=== PATIENT | female | born 1980 | race Caucasian/White ===

== ENCOUNTER → 2019-09-26 09:21 | Outpatient (CLI) | payer OTHER, SELFPAY ==
[2019-04-11 13:19] VITALS: BMI 28.7
[2019-09-26 10:55] LABS: Anion Gap 3 (5-15); BUN 11 mg/dL (7-18); BUN/Creat Ratio 10.9 RATIO (10-20); Calcium,Total 8.8 mg/dL (8.5-10.1); Chloride 107 mmol/L (98-107); Cholesterol 157 mg/dL (200); Creatinine, Serum 1.01 mg/dL (0.55-1.02); EST Glomerular Filtration Rate 65 mL/min (>60); Est Glom Filt Rate - Afr Amer 78 mL/min (>60); Glucose 80 mg/dL (74-106); High Density Lipoprotein 56 mg/dL; Potassium 3.9 mmol/L (3.5-5.1); Sodium Level 139 mmol/L (136-145); Thyroid Stim Hormone (TSH) 1.74 uIU/mL (0.358-3.74); Triglycerides 91 mg/dL; Very Low Density Lipoprotein 18 mg/dL (5-40)
== END ==
PROVIDERS: PCP Family Medicine; Referring Provider Family Medicine; Visit Provider Family Medicine
DX: Z00.00 Encounter for general adult medical examination without abnormal findings (principal); Z13.220 Encounter for screening for lipoid disorders
CPT/HCPCS: 36415; 80048; 80061; 84443

== ENCOUNTER → 2020-01-30 08:06 | Outpatient (CLI) | payer OTHER, SELFPAY ==
[2019-04-11 13:19] VITALS: BMI 28.7
[2020-01-30 08:40] LABS: Hematocrit 43.8 % (37-47); Mean Corpuscular Hgb 30.6 pg (27.0-32.0); Mean Corpuscular Volume 95.8 fL (81-99); Mean Platelet Vol. 10.5 fl (6.2-12.0); Platelet Count 191 K/mm3 (150-450); RBC Distribution Width CV 11.8 % (11.6-14.6); RBC Distribution Width SD 40.9 fl (35.1-43.9); Red Blood Count 4.57 M/mm3 (4.2-5.4); White Blood Count 4.3 K/mm3 (4.4-11.0)
[2020-01-30 09:21] LABS: T3 Total - Triiodothyronine 0.99 ng/mL (0.6-1.81)
[2020-01-30 09:24] LABS: Follicle Stimulating Hormone 8.3 mIU/mL; Free T3 2.5 pg/mL (2.18-3.98); Prolactin 11.3 ng/mL; T4 Free Direct 0.81 ng/dL (0.76-1.46); Thyroid Stim Hormone (TSH) 2.24 uIU/mL (0.358-3.74)
[2020-01-31 08:08] LABS: DHEA Sulfate 56.9 ug/dL (57.3-279.2)
[2020-02-01 12:53] LABS: Sex Hormone-binding Globulin 72.7 nmol/L (24.6-122.0)
[2020-02-06 15:15] LABS: 17-Hydroxyprogesterone 59 ng/dL (.)
== END ==
PROVIDERS: PCP Family Medicine; Referring Provider Obstetrics & Gynecology; Visit Provider Obstetrics & Gynecology
DX: N92.6 Irregular menstruation, unspecified (principal); O92.6 Galactorrhea
CPT/HCPCS: 36415; 82533; 82627; 82670; 83001; 83498; 84146; 84270; 84403; 84439; 84443; 84480; 84481; 85027; 82626

== ENCOUNTER → 2020-02-20 11:00 | Outpatient (CLI) | payer OTHER, SELFPAY ==
[2019-04-11 13:19] VITALS: BMI 28.7
[2020-02-22 10:43] LABS: Hematocrit 40.2 % (37-47); Hemoglobin 13.2 g/dL (12.0-15.0); Mean Corp Hgb Conc 32.8 g/dL (32-36); Mean Corpuscular Hgb 31.2 pg (27.0-32.0); Mean Platelet Vol. 10.8 fl (6.2-12.0); Platelet Count 161 K/mm3 (150-450); RBC Distribution Width CV 11.9 % (11.6-14.6); RBC Distribution Width SD 40.7 fl (35.1-43.9); Red Blood Count 4.23 M/mm3 (4.2-5.4); White Blood Count 4.3 K/mm3 (4.4-11.0)
[2020-02-22 11:02] LABS: Prothrombin Time (Protime)PT. 13.1 SECONDS (11.7-14.9)
[2020-02-22 11:03] LABS: Partial Thromboplast Time 27.1 Seconds (24.1-36.2)
== END ==
PROVIDERS: Anesthesiology; PCP Family Medicine; Referring Provider Obstetrics & Gynecology; Visit Provider Obstetrics & Gynecology
DX: Z01.818 Encounter for other preprocedural examination (principal); Z11.59 Encounter for screening for other viral diseases
CPT/HCPCS: 36415; 85027; 85610; 85730; 86850; 86900; 86901; 87635; G2023; U0003

== ENCOUNTER 2020-04-03 08:10 | Day surgery (SDC) | payer OTHER, SELFPAY ==
[2019-04-11 13:19] VITALS: BMI 28.7
[2020-04-03] VITALS (9 sets, daily range): BP systolic 110–126; BP diastolic 70–84; PULSE 49–64; RESP 15–16; TEMP 36.6–36.9; O2SAT 100; BMI 22.9
--- NOTE | 2020-04-03 06:57 | HP.PCM_ITS ---
- Problem List (1) Chronic female pelvic pain Status: Chronic (2) Endometriosis Status: Acute (3) Abnormal uterine bleeding (AUB) Status: Acute History and Physical Date of Admission: 04/03/20 Date: 02/22/2020 Name: OWEN RAO Age: 39 Date of : 1980 HISTORY OF PRESENT ILLNESS: On 02/22/2020, Owen Rao, a 39 year old female 5 0 0 0 5, presented for: -- Pre-Op -- Owen is here for pre-op. She is not sure she wants tubes removed unless this is necessary and wishes to discuss further with Dr OLIAV. Consents are signed and packet provided. LMT as above. Owen presents for preop to address chronic left lower abdominal pain since tubal occlusion surgery, endometriosis as well as intermenstrual bleeding related to an endometrial polyp. She is scheduled for laparoscopic bilateral salpingectomy, surgical treatment of endometriosis as indicated, hysteroscopy, dilation and curettage with polypectomy. bobby ALLERGIES: NKDA MEDICATIONS HISTORY: Patient is also takin. halobetasol propionate 0.05 % topical cream, as needed REVIEW OF SYSTEMS: GENERAL - LLQ pain SKIN - Denies skin changes EYES - Denies visual changes EARS - Denies difficulty hearing NOSE - Denies nasal congestion or bleeding MOUTH - Denies sore throat or difficulty swallowing NECK - Denies pain or swelling RESPIRATORY - Denies shortness of breath or wheezing CARDIOVASCULAR - Denies palpitations or chest pain GASTROINTESTINAL - Denies nausea, vomiting, diarrhea, constipation, abdominal pain, melena, or bright red blood GENITOURINARY - Pain with IC MUSCULOSKELETAL - Denies joint or muscle pain NEUROLOGICAL - Denies localized numbness or weakness PSYCHIATRIC - Decreased libido ENDOCRINE - Denies heat or cold intolerance, weight loss or gain HEMATO-IMMUNOLOGIC - Denies excesive bleeding with cuts PAST HISTORY: Breast/Ovarian/Colon Cancers - Breast Cancer approximately age 30-40 and cousin Infections - Bronchitis and Chicken pox Illnesses - epilepsy as child Accidents - None History of Abnormal PAPS - Denies Hospitalizations - Childbirth and see surgery last baby Down's and 01/2015; SURGICAL HISTORY: 1. , 2004, 2005, 2007, 2009 2. lap for endometriosis 2004 3. [place] Teeth Removal 4. 02/05/2015 /BTO Dr Curtis Perera MENSTRUAL HISTORY: LMP Known?- DefiniteAmount/Duration - 4 days, Regularity - Regular, Frequency - monthly days, LMP - 01/28/20, Age Onset Menarche - 13 FAMILY HISTORY: MaternalGrandparent - Cancer; MaternalGrandparent - FH: Hypertension; MaternalGrandparent - Coronary Artery Disease; PaternalGrandparent - FH: Prostate cancer; PaternalGrandparent - Coronary Artery Disease; PaternalGrandparent - FH: Diabetes mellitus type 2; PaternalGrandparent - Unknown Disease; SOCIAL HISTORY: Alcohol Use - wine not while and once a week Smoking - Never Diet - moderate, balanced diet and caffeine > 2 drinks per day Lifestyle - high stress lifestyle Exercise - active Seat Belt Use - always Illicit Drug Use - denies use of street drugs Sexual Activity - Residence - Rent a home Spouse-Sig Other Name - Alejandro Spouse-Sig Other Occupation - Sales Spouse-Sig Other Phone No - [phone] Children Name(s) - Amari Fitzgerald Romagn, Noelle, Marshall Down's Control - BTO PHYSICAL EXAMINATION BP- 100/62 Sitting, Right arm, regular cuff Temp- 98.3 Taken Orally Weight- 168.00 lbs Height- 71.75 inch BMI:22.99 CONSTITUTIONAL - NAD, well nourished, and well developed SKIN - No rash, lesions, or ulcers HEENT - normocephalic, atraumatic, sclerae anicteric NECK - no nuchal rigidity LUNGS - normal respiratory rate and rhythm EXTREMITIES - No edema or calf tenderness NEUROLOGICAL - normal gait, normal balance, normal motor PSYCHIATRIC - A and O to time, place, person, mood and affect Laboratory Tests 03/27/20 Range/Units 11:02 COVID-19 (HAILY) Not Detected (Not Detected) ASSESSMENT: 1. Endometriosis, Unspecified 2. Polyp Of Corpus Uteri 3. Other Specified Irregular Menstruation 4. Left Lower Quadrant Pain 5. Pelvic And Perineal Pain PLAN BY DIAGNOSIS: 1. Endometriosis, Unspecified, Left Lower Quadrant Pain, Other Specified Irregular Menstruation, Pelvic And Perineal Pain and Polyp Of Corpus Uteri Pain not reproducible on prior exam Pelvic US with no clear pain etiology, however, known hx endometriosis and reported Filshie clip placement at time of tubal occlusion. Type II fibroid and polyp present - likely source of AUB I suspect painfulness is due to endometriosis and/or Filshie clip placement. I however cannot be certain of which of these pathology is c ontributing to her pain however and advise bilateral salpingectomy along with surgical treatment of endometriosis. Laparoscopic salpingectomy r/b/i reviewed Hysteroscopy, dilation and curettage with polypectomy, myomectomy as indicated also planned - r/b/i/a discussed. Consents reviewed and signed
[2020-04-03 08:34] LABS: Internal QC Validated? YES +Cl - CLEAR BKGD; Pregnancy, Urine Negative Negative
[2020-04-03] MEDS: Lactated Ringers 1,000 ML 100 ML IV (08:52)
[2020-04-03] MEDS: Bupivacaine Mpf 0.5% 30 ML VIAL (09:51)
--- NOTE | 2020-04-03 10:15 | FALS_PTH ---
PATIENT: RADHA RAO [place] [facility] [place][id number] AGE/SX: 39/F ROOM: RE04/03/[address]: Dr. Camryn Thomason MD : 1980 BED: DIS: 04/03/2020 SPEC #: [id number] RECD: 04/03/20 12:04 STATUS: KARSON REReginald #: [id number] NAHID: 04/03/20 10:[address]: Camryn Lawrence DEPT: SURGICAL PATHOLOGY RECD BY: Solange Benitez ENTERED: 04/03/20 12:36 SP TYPE: FALL TUBES OTHR DR: Dr. Yony Sharp MD Tissues: A - Fallopian tube B - Perineum, NOS C - Endometrial cavity Procedures: Surgery Specimen Level II Surgery Specimen Level IV HEADER OPERATION: Diagnostic laparoscopy, bilateral salpingectomy PRE-OP DIAGNOSIS: Endometriosis, polyp of corpus uteri, irregular menstruation, left lower quadrant pain, pelvic and perineal pain TISSUE SUBMITTED: A - Bilateral fallopian tubes, B - Posterior cul-de-sac endometriosis, C - Endometrial curettings MICROSCOPIC DIAGNOSIS A. Bilateral fallopian tubes, salpingectomy: Bilateral fallopian tubes, including fimbrial ends, no pathologic diagnosis. Bilateral paratubal cysts. B. Posterior cul-de-sac, biopsy: Pieces of mesothelial-lined fibroadipose and fibroconnective tissue, negative for endometriosis. Focal mild chronic inflammation. C. Endometrial curettings: Polypoid fragments of tissue with extensive fibrosis, most consistent with endocervical polyp. See comment. SJ:rg 04/04/20 COMMENT C. Endometrial tissue is not identified. Clinical correlation and appropriate follow up are necessary. MICROSCOPIC DESCRIPTION Slides are reviewed. GROSS DESCRIPTION A - Received in fixative is one container labeled with the patient's name and designated bilateral fallopian tubes. The specimen consists of bilateral fallopian tubes including fimbrial ends. The fallopian tubes are not identified as right or left. The first fallopian tube measures 5.5 cm in length and up to 1 cm in diameter. One of the fallopian tubes shows two Filshie clips that appear intact. A paratubal cyst is also noted measuring 1 cm in greatest dimension. The paratubal cyst is filled with clear fluid. Sections reveal unremarkable cut surfaces. The second fallopian tube measures 6 cm in length and 0.8 cm in diameter and shows one Filshie clip which appears intact. Sections reveal unremarkable cut surfaces. A paratubal cyst is also noted measuring 0.6 cm in greatest dimension. Fisher Troll Line sections are submitted in two cassettes as follows: 1 - one fallopian tube with two Filshie clips and paratubal cyst, 2 - second fallopian tube with one Filshie clip and paratubal cyst. B - Received in fixative is one container labeled with the patient's name and designated Posterior culdesac endometriosis. The specimen consists of two irregular pieces of allen-pink soft tissue that in aggregate measure 2 x 2 x 0.2 cm. The specimen is totally submitted in one cassette. C - Received in fixative is one container labeled with the patient's name and designated endometrial curettings. The specimen consists of multiple irregular fragments of allen soft tissue that in aggregate measure 2.5 x 1 x 0.1 cm. The specimen is totally submitted in one cassette. / SJ:rg 04/03/20 TC:5 CPT: 24653 x2, 96950 x2
--- NOTE | 2020-04-03 11:24 | PCM.OPRPT ---
Problem List (1) Chronic female pelvic pain Status: Chronic (2) Endometriosis Status: Acute (3) Abnormal uterine bleeding (AUB) Status: Acute Report of Operation Date of Procedure: 04/03/20 Pre-Operative Diagnosis: 1. chronic pelvic pain/left lower quadrant pain. 2. endometriosis. 3. intermenstrual bleeding. 4. uterine polyp. 5. submucus fibroid Post-Operative Diagnosis: 1. chronic pelvic pain/left lower quadrant pain. 2. endometriosis Surgery/Procedure Performed:: 1. Diagnostic laparoscopy. 2. Bilateral salpingectomy. 3. Excision of endometriosis. 4. Hysteroscopy. 5. Dilation and curettage Description of Surgical Findings:: uterine cavity appeared scarred Posterior culdesac Kian's window Normal appearing uterus, bilateral tubes with Filshie clips, normal ovaries with simple left follicular cyst Mild to moderate anterior cul-de-sac adhesions likely from prior section. Appendix normal mail handler sorter: Rios Shaver Type of Anesthesia:: General, Local Anesthesiologist: Bradford Chakraborty Specimen's removed: 1. posterior culdesac endometriosis. 2. endometrial curettings. 3. bilateral tubes with Filshie clips Drains: Urine 500 mL Estimated Blood Loss (mL): 10 Fluids Replaced: 1200 ml Description of Procedure: Indications: 39-year-old para 5 with a 3 of chronic left lower abdominal pain and intermenstrual bleeding. There is no evidence of GI etiology for pain. She had a known history of endometriosis status post resection as well as Filshie clip placement for tubal sterilization. Ultrasound suggested submucosal fibroid as well as endometrial polyp. Following counseling she opted to proceed with diagnostic laparoscopy, surgical treatment of endometriosis as indicated and bilateral salpingectomy with removal of Filshie clips, hysteroscopy D&C with polypectomy and myomectomy as indicated. Informed consent was obtained prior to the procedure. Procedure: The patient was brought to the operating room and signed was performed. She is placed in the dorsal supine position and induced under general anesthesia and intubated. Her arms were tucked at her sides and her arms and she was repositioned to dorsolithotomy. The abdomen and perineum were prepped and draped in sterile fashion. Patient was placed in the high lithotomy. Navarro catheter was placed for urinary drainage. A speculum was placed vaginally the cervix grasped at the anterior cervical lip using a single-tooth tenaculum. Uterus sounded to 5 cm. A ZUMI uterine manipulator was placed and secured for further minute uterine manipulation. The tenaculum was removed from the cervix as was the speculum removed from the vagina. The patient was placed into low lithotomy and attention turned to the abdomen. Her graph an inferior umbilical incision was made using the scalpel and Veress needle introduced with successful hanging drop test and no aspirate. The abdomen was insufflated to 15 mmHg. The Veress needle was removed and a 5 mm port placed under laparoscopic guidance confirming entry into the abdominal cavity. A left and the right tap blocks were performed under laparoscopic guidance using half percent bupivacaine. Incisions were placed at the sites under transillumination and 5 mm ports were also placed at each site respectively. The patient was placed into Trendelenburg. The abdomen and pelvis were inspected. Notably there was a Kian window in the posterior cul-de-sac and bilateral Filshie clips as anticipated. Attention was turned to the left adnexa the left fimbria was identified. The left mesosalpinx was serially clamped coagulated and cut using the Enseal device to the level of the uterine cornua with salpingectomy performed including removal of the attached Filshie clip. In similar fashion the right tubal fimbria was identified and right salpingectomy was also performed with retrieval of the Filshie clip. The tubes were placed into the anterior cul-de-sac as they were unable to be removed through the 5 mm trochars due to placement of the Filshie clips. Attention was turned to the posterior cul-de-sac the Kian window was dissected with resection of the peritoneum using blunt and sharp dissection. No endometriotic nodules were appreciated. This area was irrigated and suctioned with good hemostasis noted. Interceed was placed at this site. The infraumbilical port was removed and the fascial incision extended using a Mayra clamp and a 10 mm Endo Catch bag was introduced via this incision. The bilateral tubes were placed into the Endo Catch bag and removed from the abdomen. This portion of the procedure was complete. The abdomen was desufflated and the trochars removed. The infraumbilical fascia was reapproximated using 0 Vicryl on a UR 6 needle. The skin was reapproximated using 4-0 Monocryl by the TUBE MACHINE OPERATOR HELPER under my supervision. Steri-Strips and OpSite dressings were placed over each of these incisions abdominally. Attention was then turned to the perineum. The patient was placed into high lithotomy and the uterine manipulator was removed. A bivalve speculum was placed in the cervix again grasped using a single-tooth tooth tenaculum. The cervix was subsequently dilated and hysteroscopy performed using the Symphony on system demonstrating what appeared to be a scarred uterine cavity with thin endometrium. The tubal ostia were not seen possibly obscured. There was no evidence of polyp or fibroid. Hysteroscopic endometrial sampling was performed with the Symphony on resector. And this portion of the procedure was completed. The Symphony on system was removed from the uterus. The tenaculum removed from the cervix. The tenaculum site was hemostatic following compression. The speculum was removed from the vagina and the Navarro catheter deflated and removed. The patient was repositioned to dorsal supine position, awakened, extubated and transferred to the recovery room without complication. Sponge and needle counts were correct x2. The patient tolerated the procedure well. Fluid deficit 350 ml - Complications None - Admit VTE Documentation VTE Present on Admission: No VTE Mechan Device Prophylaxis: SCD's
--- NOTE | 2020-04-03 11:38 | DCINST_ITS ---
- Discharge Diagnoses Current Active Problems: Endometriosis, Chronic pelvic pain Reason(s) for Visit for Discharge Instructions: Diagnostic laparoscopy. Hysteroscopy. Dilation and curettage You will use the following diet at home:: No restrictions Your food should be the consistency of: Regular Discharge Activity: Return to Normal Activity, May not drive while taking narcotic pain medications., May Not Shower, - - No tub bath for 1-2 weeks May resume sexual activity in: - - 2-4 weeks Lifting Restrictions: 10-20lb Call your doctor if your incision/area has: Continuous Slow Oozing, Sudden Increased Bleeding, Increased Pain/ Swelling, Increased Redness Call your doctor if you observe: Fever of 101 or Higher, Inability to urinate, Inability to have a bowel movement, Using more than one pad per hour, Shortness of breath, Chest pain, Calf discomfort, Uncontrolled pain Suture Line Care: Avoid Pulling/Pushing Remove Dressing in (days):: 1 - remove steri-strip tapes in 4 days Cleanse incision/area with: Soap & Water Allergies/Adverse Reactions: Allergies acetaminophen [From Percocet] Adverse Reaction (Verified 04/03/20 08:29) Other oxycodone HCl [From Percocet] Adverse Reaction (Verified 04/03/20 08:29) Other Medications to take at Discharge Multivitamin with Minerals [Multiple Vitamin] 1 ea PO DAILY 02/20/20 Prasterone (Dhea) [Dhea] 25 mg PO DAILY 02/20/20 Docusate Sodium [Colace] 100 mg PO BID PRN PRN #60 cap 04/03/20 Hydrocodone/Acetaminophen [Hydrocodon-Acetaminophen 5-325] 1 tab PO Q6H PRN 7 Days #20 tablet 04/03/20 Ibuprofen 600 mg PO TID PRN 7 Days #30 tab 04/03/20 The following prescriptions were given: Docusate Sodium [Colace] 100 mg PO BID PRN PRN #60 cap PRN Reason: Constipation Transmission Status: Pending to [id number] Hydrocodone/Acetaminophen [Hydrocodon-Acetaminophen 5-325] 1 tab PO Q6H PRN 7 Days #20 tablet PRN Reason: severe pain Transmission Status: Received by [id number] Ibuprofen 600 mg PO TID PRN 7 Days #30 tab PRN Reason: Pain Or Fever Transmission Status: Pending to [id number] Primary Care Physician: Kentrell Sharp MD [Primary Care Provider] - Test Results: Test results from this visit will be discussed in further detail at your follow- up appointment, if applicable. Please Follow Up With: Kiersten When: 2-4 weeks
== END 2020-04-03 14:22 | disposition home or self-care (01) ==
LOC: SDC 08:11 → AC 08:12
PROVIDERS: Anesthesiology; PCP Family Medicine; Referring Provider Obstetrics & Gynecology; Visit Provider Obstetrics & Gynecology
PROC: (CPT 49320; 2020-04-03 10:00)
DX: D25.0 Submucous leiomyoma of uterus (principal); N84.0 Polyp of corpus uteri; N80.3 Endometriosis of pelvic peritoneum; N92.3 Ovulation bleeding; Z11.59 Encounter for screening for other viral diseases
CPT/HCPCS: 00952; 58558; 58661; 58662; 36415; 81025; 86850; 86900; 86901; 87635; 88302; 88305; 94799; J7120; C1760; J2405; U0003

== ENCOUNTER → 2020-12-08 09:48 | Outpatient (CLI) | payer OTHER, SELFPAY ==
[2020-04-03 08:37] VITALS: BMI 22.9
--- NOTE | 2020-12-08 09:52 | VDLE_ITS ---
Reason For Study: Pain and swelling RIGHT CFV is compressible, spontaneous, phasic, competent and demonstrates normal augmentation. FV is compressible, spontaneous, phasic, competent and demonstrates normal augmentation. POP V is compressible, spontaneous, phasic, competent and demonstrates normal augmentation. T/P Trunk is compressible. PTV is compressible. RT PerV is compressible. SFJ is INCOMPETENT and measures 1.20 x 1.60 cm. GSV proximal thigh measures 0.63 x 0.77 cm. GSV at knee measures 0.19 x 0.16 cm. GSV INCOMPETENT throughout for greater than 0.5 seconds. ASV at knee is INCOMPETENT for greater than 0.5 seconds and measures 0.71 x 0.77 cm. SSV proximal calf is INCOMPETENT for greater than 0.5 seconds and measures 0.22 x 0.24 cm. Vein of Giacomini is INCOMPETENT for greater than 0.5 seconds and measures 0.50 x 0.49 cm. Procedure This is a venous duplex using B-mode, color flow and spectral Doppler. Exam performed in department. Patient was scanned in reverse Trendelenburg position during reflux assessment. VL/Venous Duplex US, Unilateral Interpretation Summary Right leg no DVT or SVT noted. Right GSV 7.7 mm with reflux noted throughout. A SV 7.7 mm with reflux noted at the knee. LSV and into the vein of G measuring up to 5 mm with reflux noted as well. Ordering Physician: Casey Cruz Referring Physician: Yony Sharp MD Performed By: Radha Cooney RVT
== END ==
PROVIDERS: PCP Family Medicine; Referring Provider Surgery Vascular Surgery; Visit Provider Surgery Vascular Surgery
DX: M79.89 Other specified soft tissue disorders (principal); M79.606 Pain in leg, unspecified
CPT/HCPCS: 93971

== ENCOUNTER 2021-10-02 09:55 | Outpatient (CLI) | payer OTHER, SELFPAY ==
[2021-10-08 08:55] LABS: HPV APTIMA, High Risk Negative (Negative)
== END 2021-10-02 23:59 | disposition home or self-care (01) ==
LOC: LABSPEC 09:56
PROVIDERS: PCP Family Medicine; Visit Provider Obstetrics & Gynecology
DX: Z12.4 Encounter for screening for malignant neoplasm of cervix (principal)
CPT/HCPCS: 87624; 88175; G0145

== ENCOUNTER 2021-11-27 10:37 | Outpatient (CLI) | payer OTHER, SELFPAY ==
--- NOTE | 2021-11-27 10:39 | BI_ITS ---
MAMMOGRAPHY - BILATERAL SCREENING REASON FOR EXAM: Female, 41 years old. Routine annual screening examination. PERTINENT HISTORY: Non-contributory. TECHNIQUE: Digital bilateral breast bobby (3D mammographic acquisition) in the CC and MLO projections. 2-D mediolateral oblique (MLO) and craniocaudad (CC) views of both breasts were obtained. CAD: Full Field Digital Mammography with Computer Added Detection was performed. COMPARISON: None. Baseline examination. FINDINGS: Breast Composition: The breasts are extremely dense, which lowers the sensitivity of mammography. There are no dominant masses or suspicious calcifications. No other significant abnormalities are identified. BI/SCRN MAMM (CAD)W/BOBBY BILAT IMPRESSION: Negative screening mammogram. Yearly followup mammogram recommended. (A) ASSESSMENT CATEGORY: BIRADS Category 1: Negative. A letter regarding these results will be sent to the patient by the facility within 30 days. Approximately 10% of breast cancers are not detected by mammography. A normal mammogram should not delay biopsy of a clinically suspicious abnormality. [id number] Electronically Signed: Vince Mena MD at 12:11 EDT ,
== END 2021-11-27 23:59 | disposition home or self-care (01) ==
LOC: OPBI 10:37
PROVIDERS: PCP Family Medicine; Referring Provider Obstetrics & Gynecology; Visit Provider Obstetrics & Gynecology
DX: Z12.31 Encounter for screening mammogram for malignant neoplasm of breast (principal)
CPT/HCPCS: 77063; 77067

== ENCOUNTER 2022-07-15 14:21 | Outpatient (CLI) | payer OTHER, SELFPAY ==
[2022-07-15 16:22] LABS: Vitamin D,25 Hydroxy 42.4 ng/mL
[2022-07-15 16:24] LABS: Anion Gap 7 (5-15); BUN 13 mg/dL (7-18); BUN/Creat Ratio 15.5 RATIO (10-20); Calcium,Total 8.5 mg/dL (8.5-10.1); Chloride 103 mmol/L (98-107); Cholesterol 162 mg/dL (200); Creatinine, Serum 0.84 mg/dL (0.55-1.02); EST Glomerular Filtration Rate 79 mL/min (>60); Est Glom Filt Rate - Afr Amer 96 mL/min (>60); Glucose 88 mg/dL (74-106); High Density Lipoprotein 54 mg/dL; Potassium 4.4 mmol/L (3.5-5.1); Sodium Level 139 mmol/L (136-145); Triglycerides 153 mg/dL; Very Low Density Lipoprotein 31 mg/dL (5-40)
== END 2022-07-15 23:59 | disposition home or self-care (01) ==
LOC: MFPLAB 14:25
PROVIDERS: PCP Family Medicine; Referring Provider Family Medicine; Visit Provider Family Medicine
DX: Z00.00 Encounter for general adult medical examination without abnormal findings (principal)
CPT/HCPCS: 36415; 80048; 80061; 82306; 84443

== ENCOUNTER → 2023-01-28 | Outpatient (CLI) | payer OTHER, SELFPAY ==
--- NOTE | 2023-01-28 12:17 | BI_ITS ---
MAMMOGRAPHY - BILATERAL SCREENING REASON FOR EXAM: Female, 42 years old. Routine annual screening examination. PERTINENT HISTORY: Non-contributory. TECHNIQUE: Digital bilateral breast bobby (3D mammographic acquisition) in the CC and MLO projections. 2-D mediolateral oblique (MLO) and craniocaudad (CC) views of both breasts were obtained. CAD: Full Field Digital Mammography with Computer Added Detection was performed. COMPARISON: Comparison is made with prior study dated November 27, 2021. FINDINGS: Breast Composition: The breasts are extremely dense, which lowers the sensitivity of mammography. There are no dominant masses or suspicious calcifications. No other significant abnormalities are identified. There has been no significant change since the prior study. BI/SCRN MAMM (CAD)W/BOBBY BILAT IMPRESSION: Stable bilateral screening mammogram. Yearly follow-up mammogram recommended. (A) ASSESSMENT CATEGORY: BIRADS Category 1: Negative. A letter regarding these results will be sent to the patient by the facility within 30 days. Approximately 10% of breast cancers are not detected by mammography. A normal mammogram should not delay biopsy of a clinically suspicious abnormality. [id number] Electronically Signed: Vince Mena MD at 13:42 EDT ,
== END | disposition home or self-care (01) ==
LOC: OPBI 12:15
PROVIDERS: PCP Family Medicine; Referring Provider Obstetrics & Gynecology; Visit Provider Obstetrics & Gynecology
DX: Z12.31 Encounter for screening mammogram for malignant neoplasm of breast (principal)
CPT/HCPCS: 77063; 77067

== ENCOUNTER → 2024-02-07 | Outpatient (CLI) | payer OTHER, SELFPAY ==
--- NOTE | 2024-02-07 09:14 | BI_ITS ---
MAMMOGRAPHY - BILATERAL SCREENING REASON FOR EXAM: Female, 43 years old. Routine annual screening examination. PERTINENT HISTORY: Non-contributory. TECHNIQUE: Digital bilateral breast bobby (3D mammographic acquisition) in the CC and MLO projections. 2-D mediolateral oblique (MLO) and craniocaudad (CC) views of both breasts were obtained. CAD: Full Field Digital Mammography with Computer Added Detection was performed. COMPARISON: Comparison is made with prior study dated February 27, 2023 and November 27, 2021. FINDINGS: Breast Composition: The breasts are extremely dense, which lowers the sensitivity of mammography. There are no dominant masses or suspicious calcifications. No other significant abnormalities are identified. There has been no significant change since the prior study. BI/SCRN MAMM (CAD)W/BOBBY BILAT IMPRESSION: Stable bilateral screening mammogram. Yearly follow-up mammogram recommended. (A) ASSESSMENT CATEGORY: BIRADS Category 1: Negative. A letter regarding these results will be sent to the patient by the facility within 30 days. Approximately 10% of breast cancers are not detected by mammography. A normal mammogram should not delay biopsy of a clinically suspicious abnormality. [id number] Electronically Signed: Vince Mena MD at 9:48 EDT ,
== END | disposition home or self-care (01) ==
LOC: OPBI 09:13
PROVIDERS: PCP Family Medicine; Referring Provider Obstetrics & Gynecology; Visit Provider Obstetrics & Gynecology
DX: Z12.31 Encounter for screening mammogram for malignant neoplasm of breast (principal)
CPT/HCPCS: 77063; 77067

== ENCOUNTER → 2024-07-03 | Outpatient (CLI) | payer OTHER, SELFPAY ==
--- NOTE | 2024-07-03 11:45 | RAD_ITS ---
STUDY: X-RAY - CERVICAL SPINE REASON FOR EXAM: Female, 44 years old. back pain TECHNIQUE: 5 view(s) of the cervical spine were obtained. COMPARISON: None FINDINGS: Normal anterior atlantoaxial articulation. Normal odontoid process. There is straightening of the normal cervical lordosis. There is multi-level endplate spondylosis. There is multi-level degenerative disc disease with multilevel disc space narrowing. Normal visualized intervertebral neuroforamina. The soft tissue structures are unremarkable. RAD/Cerv Spine 4 or 5 Views IMPRESSION: Degenerative disc disease lower cervical spine with straightening of the normal curvature. MRI may be useful. Electronically Signed: Bryce Landry MD at 12:49 EST ,
--- NOTE | 2024-07-03 11:45 | RAD_ITS ---
STUDY: X-RAY - THORACIC SPINE REASON FOR EXAM: Female, 44 years old. back pain TECHNIQUE: 3 view(s) of the thoracic spine were obtained. COMPARISON: None. FINDINGS: Normal kyphosis of the thoracic spine. There is no substantial scoliosis. There is multilevel endplate spondylosis of the thoracic vertebrae. There is multilevel disc space narrowing of the thoracic spine. The soft tissue structures are unremarkable. RAD/Thoracic Spine 2 Views IMPRESSION: Mild degenerative disc disease lower thoracic spine. MRI may be useful. Electronically Signed: Bryce Landry MD at 12:50 EST ,
== END | disposition home or self-care (01) ==
LOC: MTRAD 11:45
PROVIDERS: PCP Family Medicine; Referring Provider Family Medicine; Visit Provider Family Medicine
DX: R20.0 Anesthesia of skin (principal)
CPT/HCPCS: 72050; 72070

== ENCOUNTER → 2025-06-17 | Outpatient (CLI) | payer OTHER, SELFPAY ==
--- NOTE | 2025-06-17 12:30 | BI_ITS ---
EXAM: SCRN MAMM (CAD)W/BOBBY BILAT DATE: 06/17/2025 CLINICAL HISTORY: F, Age 45 y/o , SCREEN FOR BREAST CANCER TECHNIQUE: Procedure Code: [id number] Modality: MG Procedure: SCRN MAMM (CAD)W/BOBBY BILAT COMPARISON: Prior exam(s) were compared FINDINGS: TISSUE DENSITY: The breasts are heterogeneously dense, which may obscure small masses. Bilateral Breast Mammographic Findings: No significant masses, calcifications or other abnormalities are identified. BI/SCRN MAMM (CAD)W/BOBBY BILAT IMPRESSION: No mammographic evidence of malignancy. OVERALL FINAL ASSESSMENT BI-RADS 1: NEGATIVE. RECOMMENDATION: Routine annual follow-up in 1 Year Additional Recommendation none A letter with findings and recommendations will be mailed to the patient. Reading Location: [id number]
== END | disposition home or self-care (01) ==
LOC: OPBI 12:24
PROVIDERS: PCP Family Medicine; Referring Provider Nurse Practitioner Family; Visit Provider Nurse Practitioner Family
DX: Z12.31 Encounter for screening mammogram for malignant neoplasm of breast (principal)
CPT/HCPCS: 77063; 77067

== ENCOUNTER 2025-06-30 12:39 | Emergency (ER) | payer OTHER, SELFPAY ==
[2025-06-30 12:40] VITALS: BP 126/79; PULSE 67; RESP 16; TEMP 36.9; O2SAT 99; BMI 22.7
[2025-06-30 12:55] VITALS: BP 126/76; PULSE 89; RESP 18; TEMP 37.1; O2SAT 98
--- OUTSIDE RECORDS SUMMARY | 2025-06-30 13:32 | XMS RPT_ITS | CCD ---
Author Organization [facility] Inform ion Partnership [facility] Care Team Providers Care Sheriff Deputy Name Role Phone Lila MARY, Dr. Bhakta Primary Care Physicia n Dr. Yony Sharp MD Referring Provider [phone] Cora Ryan Attending Physician [phone] Kala Langford Attending Unavailable Yony Sharp Referring Unavailable Yony Sharp Primary Care Unavailable Dwight Croft Attending Unavailable Dwight Croft Referring Unavailable Yony Sharp Primary Care Unavailable Cora Maddox Attending Unavailable Cora Maddox Referring Unavailable Yony Sharp Primary Care Unavailable Ethan Yadav Attending Unavailable Yony Sharp Primary Care Unavailable Cora Maddox Attending Unavailable Yony Sharp Referring Unavailable Yony Sharp Primary Care Unavailable Allergies Allergy Classification Reported Allergen(s) Allergy Type Date of Onset Reaction(s) Facility (3 sources) Acetaminophen Drug Allergy 04-03-2020 Other [facility] (4 sources) oxyCODONE; Translations: [oxycodone HCl] Drug Allergy 04-03-2020 Other [facility] (1 source) Acetaminophen Drug Allergy 05-02-2025 [facility] Repository Medications Current Medications Medication Drug Class(es) Dates Sig (Normalized) Sig (Original) Multivitamin With Minerals (2 sources) Start: 02-20-2020 Multivitamin With Minerals Active 1 EACH PO DAILY February 20, 2020 12:00am Start: 02-20-2020 Multivitamin W ith Minerals Active 1 EACH PO DAILY February 19, 2020 11:00pm Multivitamin With Minerals 1 EACH tablet (1 source) Start: 02-20-2020 take 1 tablet by mouth once daily Multivitamin With Minerals 1 EACH tablet Active 1 NMA PO DAILY February 20, 2020 12:00am Complies with drug therapy Completed/Discontinued Medications Medication Drug Class(es) Dates Sig (Normalized) Sig (Original) acetaminophen 325 mg / HYDROcodone bitartrate 5 mg oral tablet (3 sources) Opioid Agonist Start: 04-03-2020 End: 04-10-2020 Hydrocodone-Acetamin ophen 1 EACH tablet Discontinued 1 {tbl} PO EVERY 6 HOURS as needed for severe pain 20 7 0 April 03, 2020 April 09, 2020 12:00am April 10, 2020 12:02am Endometriosis Endometriosis, unspecified Start: 04-03-2020 End: 04-10-2020 take 1 tablet by mouth every six hours Hydrocodone-Acetaminophen Discontinued 1 TABLET PO EVERY 6 HOURS 20 7 April 03, 2020 April 10, 2020 12:02am docusate sodium 100 mg oral capsule (3 sources) Start: 04-03-2020 End: 07-19-2024 take 1 capsule by mouth twice daily as needed for constipation Docusate Sodium 100 MG capsule Discontinued 100 mg PO TWICE DAILY NEEDED as needed for Constipation 60 0 April 03, 2020 12:00am July 19, 2024 12:10pm ibuprofen 600 mg oral tablet (3 sources) Nonsteroidal Anti-inflammatory Drug Start: 04-03-2020 End: 04-10-2020 take 1 tablet by mouth three times daily as needed for pain Ibuprofen 600 MG tablet Discontinued 600 mg PO THREE TIMES A DAY as needed for Pain Or Fever 30 7 0 April 03, 2020 11:40am April 09, 2020 12:00am April 10, 2020 12:02am prasterone 25 mg oral capsule (3 sources) Start: 02-20-2020 End: 07-19-2024 take 1 capsule by mouth once daily Prasterone (Dhea) 25 MG capsule Discontinued 25 mg PO DAILY February 20, 2020 12:00am July 19, 2024 12:10pm Problems Active Problems Problem Classification Problem Date Documented Date Episodic/Chronic Abdominal pain (3 sources) Chronic pelvic pain of female; Translations: [Pelvic and perineal pain] 04-03-2020 Episodic Endometriosis (3 sources) Endometriosis (clinical); Translations: [Endometriosis, unspecified] 04-03-2020 Chronic Menopausal disorders (3 sources) Menopausal syndrome; Translations: [Menopausal and female climacteric states] Onset: 05-02-2025 05-02-2025 Chronic Menstrual disorders (3 sources) Irregular periods; Translations: [Irregular menstruation, unspecified] Onset: 05-02-2025 05-02-2025 Chronic Other circulatory disease (1 source) Raynaud's disease; Translations: [Raynaud's syndrome without gangrene] 07-19-2024 Chronic Other female genital disorders (3 sources) Abnormal uterine bleeding; Translations: [Abnormal uterine and vaginal bleeding, unspecified] 04-03-2020 Chronic Other screening for suspected conditions (not mental disorders or infectious disease) (2 sources) Encounter for screening mammogram for malignant neoplasm of breast; Translations: [Encounter for screening mammogram for malignant neoplasm of breast] Onset: 05-02-2025 Episodic Past or Other Problems Problem Classification Problem Date Documented Da te Episodic/Chronic Other nervous system disorders (1 source) Anesthesia of skin; Translations: [Anesthesia of skin] Onset: 08-02-2024 Episodic Spondylosis; intervertebral disc disorders; other back problems (3 sources) Cervical radiculopathy; Translations: [Radiculopathy, cervical region] Onset: 07-19-2024 07-19-2024 Episodic Results Test Name Value Interpretation Reference Range Facil ity SCRN MAMM (CAD)W/BOBBY BILATo n 06-17-2025 SCRN MAMM (CAD)W/BOBBY BILAT [facility] Imaging Services [address] [place] [id number] SCRN MAMM (CAD)W/BOBBY BILAT MR#: [id number] Acct: [id number] Name: RADHA RAO Rep #: [id number] : 1980 F 45 From: Tameka Padilla i, MD PCP: Dr. Yony Sharp MD Status: REG CLI Study: SCRN MAMM (CAD)W/BOBBY BILAT Date of Exam: 11/06 Exam# [id number] Ordering Dr: Cora Maddox LABOR EMPLOYMENT ASSOCIATE-C EXAM: SCRN MAMM (CAD)W/BOBBY BILAT DATE: 06/17/2025 CLINICAL HISTORY: F, Age 45 y/o , SCREEN FOR BREAST CANCER TECHNIQUE: Procedure Code: [id number] Modality: MG Procedure: SCRN MAMM (CAD)W/BOBBY BILAT COMPARISON: Prior exam(s) were compared FINDINGS: TISSUE DENSITY: The breasts are heterogeneously dense, which may obscure small masses. Bilateral Breast Mammographic Findings: No significant masses, calcifications or other abnormalities are identified. BI/SCRN MAMM (CAD)W/BOBBY BILAT IMPRESSION: No mammographic evidence of malignancy. OVERALL FINAL ASSESSMENT BI-RADS 1: NEGATIVE. RECOMMENDATION: Routine annual follow-up in 1 Year Additional Recommendation none A letter with findings and recommendations will be mailed to the patient. Reading Location: [id number] CC: AJAY Maddox; Dr. Yony Sharp MD Maori Physiotherapist: Signed Normal [facility] Testing Lead Office Visit Reporton 05-02-2025 Testing Lead Office Visit Report [facility]'s [address], [address] [place] [address] OFFICE VISIT Date of Service: 05/02/25 MR#: [id number] Acct: [id number] Name: RADHA RAO Rep #: [id number] : 1980 Provider: AJAY Umana Age/Sex: 44/F Location: [facility] Status: Signed Intake Vital Signs 07/19/24 11:06 05/02/25 10:55 05/02/25 11:07 Height 5 ft 11.5 in 5 ft 11.5 in 5 ft 11.5 in Weight: 168 lb 2 oz 166 lb 1 oz BMI 23.1 22.8 BP 122/77 H 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 Is patient in pain?: No Allergies acetaminophen (From Percocet) Adverse Reaction (Verified 05/02/25 10:56) Other oxycodone HCl (From Percocet) Adverse Reaction (Verified 05/02/25 10:56) Other Medications ???Medication ???Instructions ???Recorded ???Confirmed ???Type multivitamin with minerals 1 ea PO DAILY 02/20/20 05/02/25 Hi story Is last menstrual period known: Yes Last Menstrual Period: 04/23/25 Post menopausal: No Patient : No : No Control Method: bilateral salp PFSH Surgical History H/O bilateral salpingectomy History of surgery on lower extremity History of laparoscopy Hx of section Family History Father Cancer Prostate Diabetes Grandfather Cancer Prostate Grandmother Uterine cancer Aunt Uterine cancer Social History adopted: No household members: spouse and children number of children: 5 current occupational status: employed current occupation: [employer] sexually active: Yes Smoking Status: Never smoker alcohol intake: current alcohol intake frequency: holidays/special occasions only substance use type: does not use caffeine: Yes Type: coffee during the past year weight has: remained stable what type of physical activity do you participate in: running frequency: 3-4 times per week lane/scientology: Jewish seatbelt use: always do you feel safe at home: Yes additional social history: Alejandro- Alonzo History 5 Elective abortions Hx Para 5 Spontaneous abortions Hx # Term Pregnancies Ectopic pregnancies Hx # Pregnancies Multiple births # of living children 5 Past Pregnancies Del. Date Name GA/Weeks Outcome Route Bth Weight Infant Gen Labor Lgth Anesthesia Del Locatn Provider FOB Unknown Lia- 2004 live - full term Female [facility] Unknown Alejandro- 2005 live - full term Male [facility] Unknown Rom- 2007 live - full term Male [facility] Unknown Amry- 2009 live - full term Female [facility] Unknown Osmel- 2014 live - full term Male [facility] Delivery Date: Last Updated by: Ginny Goodrich failed to progress Delivery Date: Last Updated by: Ginny Goodrich down syndrome HPI Encounter for routine gynecological examination Details: RADHA RAO is a 44 year old who presents for annual exam. She is here to establish; previous patient of Dr. Camryn Thomason. She reports she is experiencing night sweats and hot flashes; vaginal dryness. She has also had irregular menses. Last PAP: 2021; normal. HPV neg History of abnormal PAP: no Last mammogram: 2023; normal History of abnormal mammogram: no Colon cancer screening: age 45 Other preventative health care screenings: Dr. Sharp; PCP Female Reproductive History Last Menstrual Period: 04/23/25 Cycle Length: 21-35 Bleeding Duration: 5 Questions: metrorrhagia: No, sexually active: Yes, dyspareunia: No and PCB: No Menopausal Symptoms: Yes hot flashes, Yes night sweats, No weight change, No mood changes, No difficulty concentrating, Yes sleep problems and Yes change in libido Menopausal Treatment: No HRT, No Vaginal Estrogen, No Osphena, No OTC treatments and No prescription non-hormonal treatment ROS Const Constitutional: Reports night sweats; Denies chills, fatigue, fever(s), headache(s) or weight loss Eyes Eyes: Denies change in vision ENT ENT: Denies dizziness Resp Resp: Denies cough GI GI: Denies abdominal pain, constipation or nausea : Reports hot flashes; Denies difficulty voiding, dysuria, hematuria, nipple discharge, pelvic pain, prolapse symptoms, urinary incontinence, vaginal discharge, vaginal dryness, vaginal odor or vaginal pruritus Skin Skin/Breast: Denies alopecia, rash, breast mass, breast pain, breast skin changes or nipple discharge Neuro Neuro: Denies dizziness Psych Psych: Reports change in libido; Denies anxiety, depression or difficulty concentrating Endo Endo: Denies cold intolerance, excessive sweat (more content not included)... Normal [facility] Cerv Spine 2 or 3 Viewson Cerv Spine 2 or 3 Views [facility] [address] [place] [address] Cerv Spine 2 or 3 Views MR#: [id number] Acct: [id number] Name: RADHA RAO Rep #: [id number] : 1980 F 44 From: Bryce Castro PCP: Dr. Yony Sharp MD Status: DEP AMB Study: Cerv Spine 2 or 3 Views Date of Exam: 07/19/24 Exam# [id number] Ordering Dr: Kala Langford [id number] INDICATION: pain -- please do flex/ext EXAMINATION/TECHNIQUE : X-RAY - XR Spine Cervical 2 or 3 Views, lateral view and flexion and extension. COMPARISON: 09/02/2023 __ FINDINGS: VERTEBRAE: Preserved vertebral body height. No fracture. No spondylolisthesis. Preservation of the normal cervical lordosis. No significant facet arthropathy. No abnormal motion on flexion and extension views. Normal appearance the odontoid process and prevertebral soft tissue planes. DISCS: Subtle endplate deformity particularly at C5-6 and to lesser extent C6-7. NECK SOFT TISSUES: No prevertebral soft tissue widening. LUNG APICES: Clear. RAD/Cerv Spine 2 or 3 Views IMPRESSION: 1. No evidence of fracture, subluxation or abnormal motion. 2. Subtle endplate changes most notable at C5-6.. Electronically Signed: Bryce Leal MD at 1:18 EST , CC: GLENIS Thakkar; Dr. Yony Sharp MD Maori Physiotherapist: Signed Normal [facility] Orthopedic Visit Reporton Orthopedic Visit Report [facility] [address] [place] [address] OFFICE VISIT Date of Service: 07/19/24 MR#: [id number] Acct: [id number] Name: RADHA RAO Rep #: [id number] : 1980 Provider: GLENIS Thakkar Age/Sex: 44/F Location[place] [facility] Status: Signed Intake Vital Signs 04/03/20 08:37 07/19/24 11:06 Height 5 ft 11.5 in 5 ft 11.5 in Weight: 168 lb 2 oz BMI 23.1 Intake Visit Reasons: CERVICAL SPINE Accompanied by: Self Is patient in pain?: No Allergies acetaminophen (From Percocet) Adverse Reaction (Verified 07/19/24 11:10) Other oxycodone HCl (From Percocet) Adverse Reaction (Verified 07/19/24 11:10) Other [facility] Surgical History (Updated 07/19/24 @ 11:14 by Pamella Bahena MA) History of surgery on lower extremity History of laparoscopy Hx of section Family History (Updated 07/19/24 @ 11:15 by Pamella Bahena MA) Father Cancer Prostate Diabetes Grandfather Cancer Prostate Social History (Updated 07/19/24 @ 11:15 by Pamella Bahena MA) household members: spouse and children Smoking Status: Never smoker alcohol intake: current alcohol intake frequency: holidays/special occasions only HPI CERVICAL SPINE Details: This documentation accurately reflects the service provided and the decisions made by me, GLENIS Thakkar 07/19/24 1106. Part of today???s visit was documented by Pamella WRIGHT , acting as scribe. RADHA RAO is a 44 year old F here today for Cervical pain. Patient states that her left shoulder has bothered her since last winter. Patient states in May that she got a pinched nerve and kink in her neck and it would come and go away and then the last time it happen she got pain that radiate down her left arm. Patient has had numbness and tingling that went down her arm. This numbness and tingling went down her left shoulder blade to her left armpit then down her medial arm to her elbow. No numbness or tingling below the elbow. Patient has taken Ibuprofen and Tylenol and that hasn't helped her nerve pain. Patient state ice helped with the nerve pain. Patient states laying down helps it. Patient states sitting while working bothers her the most, walking relieves the pain. Patient has never had injections. Patient hasn't had PT. Denies any dexterity or balance issues. Ortho Exam General General: Yes no acute distress Neurologic: Yes alert and Yes oriented x3 Spine SPINE TESTING CERVICAL THORACIC LUMBAR Musculoskeletal Strength 0=absent - 5=normal Details: Neurological exam of the upper extremities shows 5x5 power. Normal sensations across all dermatomes. No hyperreflexia. No midline or paraspinal tenderness. Coding Level of Care Code Off vis,new,level 4 Diagnoses Cervical radiculopathy M54.12 Assessment and Plan Assessment and Plan (1) Cervical radiculopathy: Status: Acute Orders: Orders Cerv Spine 2 or 3 Views Today M54.2 - Cervicalgia Referrals Physical Therapy Referral M54.12 - Radiculopathy, cervical region Medications: Discontinued docusate sodium Discontinued Reason: Pt no longer taking 100 mg PO BID PRN PRN 60 caps 0RF Constipation Plan Obtained and reviewed flexion/extension xrays today with the patient and reviewed prior imaging. Cervical xrays shows a loss of normal cervical lordosis and hyperlaxity on flexion views. No MRI. Explained imaging findings in detail. Given her pain from May with the radicular symptoms of numbness and tingling extending down her left shoulder to her armpit and biceps, an MRI at this time is warranted to further assess. Also recommended physical therapy to increase extensor strength and stretching to improve the cervical straightening. Discussed at home treatment such as taking 600- 800mg of ibuprofen for anti-inflammatory effects and supplementing with Tylenol as needed. She has a TENS unit at home and recommend that she trial that. After she completes physical therapy and continues to have pain, we will order an MRI at that time. She will follow up after the MRI to review the results. Patient is in agreement. 07/19/24 1405 Date Kala Boggs Signature: Date (if applicable) CC: Dr. Yony Sharp MD Normal [facility] Cerv Spine 4 or 5 Viewson Cerv Spine 4 or 5 Views [facility] Imaging Services [address] [place] [address] Cerv Spine 4 or 5 Views MR#: [id number] Acct: [id number] Name: RADHA RAO Rep #: [id number] : 1980 F 44 From: Bryce Landry MD PCP: Dr. Yony Sharp MD Status: [facility] Study: Cerv Spine 4 or 5 Views Date of Exam: 07/03/24 Exam# [id number] Ordering Dr: Dwight Croft MD [id number] STUDY: X-RAY - CERVICAL SPINE REASON FOR EXAM: Female, 44 years old. back pain TECHNIQUE: 5 view(s) of the cervical spine were obtained. COMPARISON: None FINDINGS: Normal anterior atlantoaxial articulation. Normal odontoid process. There is straightening of the normal cervical lordosis. There is multi-level endplate spondylosis. There is multi-level degenerative disc disease with multilevel disc space narrowing. Normal visualized intervertebral neuroforamina. The soft tissue structures are unremarkable. RAD/Cerv Spine 4 or 5 Views IMPRESSION: Degenerative disc disease lower cervical spine with straightening of the normal curvature. MRI may be useful. Electronically Signed: Bryce Landry MD at 12:49 EST , CC: Dr. Dwight Croft MD; Dr. Yony Sharp MD Maori Physiotherapist: Signed Normal [facility] Thoracic Spine 2 Viewson Thoracic Spine 2 Views [facility] Imaging Services [address] [place], [place] [id number] Thoracic Spine 2 Views MR#: [id number] Acct: [id number] Name: RADHA RAO Rep #: [id number] : 1980 F 44 From: Bryce Landry MD PCP: Dr. Yony Sharp MD Status: REG CL Study: Thoracic Spine 2 Views Date of Exam: 07/03/24 Exam# [id number] Ordering Dr: Dwight Croft MD [id number] STUDY: X-RAY - THORACIC SPINE REASON FOR EXAM: Female, 44 years old. back pain TECHNIQUE: 3 view(s) of the thoracic spine were obtained. COMPARISON: None. FINDINGS: Normal kyphosis of the thoracic spine. There is no substantial scoliosis. There is multilevel endplate spondylosis of the thoracic vertebrae. There is multilevel disc space narrowing of the thoracic spine. The soft tissue structures are unremarkable. RAD/Thoracic Spine 2 Views IMPRESSION: Mild degenerative disc disease lower thoracic spine. MRI may be useful. Electronically Signed: Bryce Landry MD at 12:50 EST , CC: Dr. Dwight Croft MD; Dr. Yony Sharp MD Maori Physiotherapist: Signed Normal [facility] Basophil percentageon 2021 Chloride [Moles/Vol] 103 mmol/L 98-107 [facility] Work Phone: Cholesterol [Mass/Vol] 162 mg/dL <200 [facility] Work Phone: Comment on above: <200 mg/dL Desirable 200-240 mg/dL Borderline >240 mg/dL High Risk Glucose [Mass/Vol] 88 mg/dL 74-106 [facility] Work Phone: Potassium [Moles/Vol] 4.4 mmol/L 3.5-5.1 [facility] Work Phone: Sodium [Moles/Vol] 139 mmol/L 136-145 [facility] Work Phone: Triglyceride [Mass/Vol] 153 mg/dL <199 [facility] Work Phone: Comment on above: The drugs N-Acetylcy steine and Metamizole may falsely depress this assay.Serum Triglycerides Reference Interval Normal <150 mg/dL Borderline high 150 - 199 mg/dL High 200 - 499 mg/dL Very High > or = 500 mg/dL Laboratory - Chemistry and C hemistry - challengeon 07-15-2022 CO2 [Moles/Vol] 29.0 mmol/L 21.0-32.0 [facility] Work Phone: Urea nitrogen/Creatinine [Mass ratio] 15.5 mg/mg - [facility] Work Phone: No Panel Informationon 07-15 Estimated GFR (MDRD) Amer 96 mL/min >60 [facility] Work Phone: Comment on above: GFR Calc Estimated GFR (MDRD) Non-Af Amer 79 mL/min >60 [facility] Work Phone: Comment on above: Non- GFR Calc Thyroid Stimulating Hormone (TSH) 1.30 uIU/mL 0.358-3.74 [facility] Work Phone: Vitamin D 25-Hydroxy 42.4 ng/mL [facility] Work Phone: Comment on above: Vitamin D 25(OH) Sta tus Range Deficiency <20 ng/mL (50nmol/L) Insufficiency 20 - 30 ng/mL (50 - 75 nmol/L) Sufficiency 30 - 100 ng/mL (75 - 250 nmol/L) Toxicity >100 ng/mL (>250 nmol/L) Serum or plasma calcium davin urement (mass/volume)on 07-15-2022 Calcium [Mass/Vol] 8.5 mg/dL 8.5-10.1 [facility] Work Phone: Serum or plasma cholesterol in HDL measurement (mass/volume)on 07-15-2022 Cholesterol in HDL [Mass/Vol] 54 mg/dL >40 [facility] Work Phone: Comment on above: The drugs N-Acetylcy steine and Metamizole may falsely depress this assay. Reference Range HDL <40 mg/dL Low HDL Cholesterol HDL >or= 60 mg/dL High HDL Cholesterol Serum or plasma cholesterol in VLDL measurement (mass/volume)on 07-15-2022 Cholesterol in VLDL [Mass/Vol] 31 mg/dL 5-40 [facility] Work Phone: Serum or plasma creatinine m easurement (mass/volume)on 07-15-2022 Creatinine [Mass/Vol] 0.84 mg/dL 0.55-1.02 [facility] Work Phone: Comment on above: The validity of the calculated GFR & GFRAA in patients over 70 years has not been determined. Clinical correlation is essential. Serum or plasma low density lipoprotein (LDL) cholesterol measurement (mass/volume)on 07-15-2022 Cholesterol in LDL [Mass/Vol] 77 mg/dL 0-130 [facility] Work Phone: Serum or plasma urea nitroge n measurement (mass/volume)on 07-15-2022 Urea nitrogen [Mass/Vol] 13 mg/dL 7-18 [facility] Work Phone: Thin prep Papanicolaou smear with manual screeningon 07-15-2022 Thin prep Papanicolaou smear with manual screening 7 5-15 [facility] Work Phone: Vital Signs Date Time Vital Sign Value Performing Clinician Asifi dean 05-02-2025 11:07-0400 Body height 181.[address] Yony Sharp MD Work Phone: [facility] 05-02-2025 10:55-0400 Body mass index (BMI) [Ratio] 22.8 kg/m2 Dr. Yony Sharp MD Work Phone: [facility] 05-02-2025 10:55-0400 Body weight 75.[address] Yony Sharp MD Work Phone: [facility] 05-02-2025 10:55-0400 Diastolic blood pressure 77 mm[Hg] Dr. Yony Sharp MD Work Phone: [facility] 05-02-2025 10:55-0400 Systolic blood pressure 122 mm[Hg] Dr. Yony Sharp MD Work Phone: [facility] Encounters Encounter Date Encounter Type Care Provider Facility Start: 06-17-2025 [facility] Start: 05-02-2025 Encounter for gynecological examination (general) (routine) without abnormal findings Corapierce Maddox [facility] Start: 05-02-2025 End: 05-02-2025 Patient encounter procedure Corapierce Maddox LABOR EMPLOYMENT ASSOCIATE-C -[facility] Work Phone: Start: 05-02-2025 End: 05-02-2025 Patient encounter status Cora Mazariegosluna LABOR EMPLOYMENT ASSOCIATE-C [facility] Start: 05-02-2025 End: 05-02-[address] Yony Shapr MD Work Phone: -[facility] Start: 07-19-2024 End: 07-19-2024 ambulatory Kala Langford Facility[facility] Start: 07-03-2024 End: 07-03-2024 ambulatory Luis Fcooper Guerda Facility:[facility] Start: 01-28-2023 End: 01-28-2023 ambulatory [facility] Work Phone: Start: 01-28-2023 End: 01-28-2023 Patient encounter procedure [facility] Start: 07-15-2022 End: 07-15-2022 ambulatory [facility] Work Phone: Start: 07-15-2022 End: 07-15-2022 Patient encounter procedure [facility] [place] [facility] Procedures Date Procedure Procedure Detail Performing Clinician Start: 01-28-2023 Screening mammography Plan of Treatment Date Care Activity Detail Author MG Breast - bilateral Screening [facility] Immunizations Immunization Date Immunization Notes Care Provider Honey chavez 05-29-2014 Influenza virus vaccine [facility] Payers Date Payer Category Payer Self-pay [id number] 2015 Unknown [id number] Unknown [id number] Unknown [id number] [id number] [id number] Unknown [id number] Unknown [id number] [id number] [id number] Unknown [id number] Unknown [id number] [id number] Social History Date Type Detail Facility Start: 03-25-2020 End: 03-25-2020 Tobacco smoking status NHIS Unknown if ever smoked [facility] Start: 03-25-2020 Non-smoker [facility] Start: 1980 Sex Assigned At Female [facility] Start: 05-02-2025 Tobacco smoking stat us OKIS Never smoked tobacco (finding) [facility] Sex Female [facility] Medical Equipment Procedure Code Equipment Code Equipment Origin al Text Equipment Identifier Dates Laparoscopy, diagnostic DRESSING,INTERCEED 3X4 FDA Start: 04-03-2020 Laparoscopy, diagnostic DRESSING,INTERCEED 3X4 FDA Start: 04-03-2020 Laparoscopy, diagnostic DRESSING,INTERCEED 3X4 FDA Start: 04-03-2020 Progress note 05-02-2025 Note Date & Type Note Facility 05-02-2025 Progress note [facility] Evaluation note Note Date & Type Note Facility Evaluation note No assessment information availa ble [facility] Work Phone: Evaluation note Note Date & Type Note Facility Evaluation note Diagnosis Onset Date Resolution Climacteric acute April 10:52am Irregular menses acute Septembe r 2024 10:52am Encounter for routine gynecological examination noneactive May 02, 2025 10:52am [facility] Work Phone: Progress note Note Date & Type Note Facility Progress note Note Date/Time May 02, 2025 11:37am [facility] [address], [address] [place] [address] OFFICE VISIT Date of Service: 05/02/25 MR#: [id number] Acct: [id number] Name: RADHA RAO Rep #: [id number] : 1980 Provider: AJAY Maddox Age/Sex: 44/F Location: [facility] Status: Signed Intake Vital Signs 07/19/24 11:06 05/02/25 10:55 05/02/25 11:07 Height 5 ft 11.5 in 5 ft 11.5 in 5 ft 11.5 in Weight: 168 lb 2 oz 166 lb 1 oz BMI 23.1 22.8 BP 122/77 H 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 Is patient in pain?: No Allergies acetaminophen (From Percocet) Adverse Reaction (Verified 05/02/25 10:56) Other oxycodone HCl (From Percocet) Adverse Reaction (Verified 05/02/25 10:56) Other Medications ?Medication ?Instructions ?Recorded ?Confirmed ?Type multivitamin with minerals 1 ea PO DAILY 02/20/2004/15 History Is last menstrual period known: Yes Last Menstrual Period: 04/23/25 Post menopausal: No Patient : No : No Control Method: bilateral salp PFSH Surgical History H/O bilateral salpingectomy History of surgery on lower extremity History of laparoscopy Hx of section Family History Father Cancer Prostate Diabetes Grandfather Cancer Prostate Grandmother Uterine cancer Aunt Uterine cancer Social History adopted: No household members: spouse and children number of children: 5 current occupational status: employed current occupation: [employer] sexually active: Yes Smoking Status: Never smoker alcohol intake: current alcohol intake frequency: holidays/special occasions only substance use type: does not use caffeine: Yes Type: coffee during the past year weight has: remained stable what type of physical activity do you participate in: running frequency: 3-4 times per week lane/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 Date Name GA/Weeks Outcome Route Bth Weight Infant Gen Labor Lgth Anesthesia Del Locatn Provider FOB Unknown Lia- 2004 live - full term Femal e [facility] [place] Unknown Alejandro- 2005 live - full term Male [facility] Unknown Romagn- 2007 live - full term Male [facility] Unknown Mary- 2009 live - full term Femal e [facility] Unknown Osmel- 2014 live - full term Male [facility] Delivery Date: Last Updated by: Ginny Goodrich failed to progress Delivery Date: Last Updated by: Ginny Goodrich down syndrome HPI Encounter for routine gynecological examination Details: RADHA RAO is a 44 year old who presents for annual exam. She is here to establish; previous patient of Dr. Camryn Thomason. She reports she is experiencing night sweats and hot flashes; vaginal dryness. She has also had irregular menses. Last PAP: 2021; normal. HPV neg History of abnormal PAP: no Last mammogram: 2023; normal History of abnormal mammogram: no Colon cancer screening: age 45 Other preventative health care screenings: Dr. Sharp; PCP Female Reproductive History Last Menstrual Period: 04/23/25 Cycle Length: 21-35 Bleeding Duration: 5 Questions: metrorrhagia: No, sexually active: Yes, dyspareunia: No and PCB: No Menopausal Symptoms: Yes hot flashes, Yes night sweats, No weight change, No mood changes, No difficulty concentrating, Yes sleep problems and Yes change in libido Menopausal Treatment: No HRT, No Vaginal Estrogen, No Osphena, No OTC treatmentsand No prescription non-hormonal treatment ROS Const Constitutional: Reports night sweats; Denies chills, fatigue, fever(s), headache(s) or weight loss Eyes Eyes: Denies change in vision ENT ENT: Denies dizziness Resp Resp: Denies cough GI GI: Denies abdominal pain, constipation or nausea : Reports hot flashes; Denies difficulty voiding, dysuria, hematuria, nipple discharge, pelvic pain, prolapse symptoms, urinary incontinence, vaginal discharge, vaginal dryness, vaginal odor or vaginal pruritus Skin Skin/Breast: Denies alopecia, rash, breast mass, breast pain, breast skin changes or nipple discharge Neuro Neuro: Denies dizziness Psych Psych: Reports change in libido; Denies anxiety, depression or difficulty concentrating Endo Endo: Denies cold intolerance, excessive sweating or heat intolerance Exam Const General: cooperative, healthy appearing, comfortable, no acute distress, well groomed and well hydrated Nutritional Appearance: well nourished Orientation: alert, awake and oriented x3 HENMT Head: normal to inspection and normocephalic Ears: hearing grossly normal bilaterally and external ears normal Nose: external nose normal Face and sinus: normal facial exam Eyes General: appearance normal, both eyes and all related structures Neck Neck: normal visual inspection, full ROM and no lymphadenopathy Thyroid: thyroid normal Chest Chest palpation & inspection: normal inspection of the chest Breast inspection: normal inspection of the breasts and normal inspection of theaxillae Breast palpation: normal palpation of the breasts, normal palpation of the axillae and no axillary lymphadenopathy Resp Effort & Inspection: normal respiratory effort, able to speak in complete sentences and symmetric chest movement GI Inspection: normal to inspection Palpation: soft and no hepatosplenomegaly General: bladder normal to palpation External Female Exam: normal external appearance and normal appearance of the urethra Urethra: normal appearance of the urethra Speculum Exam - Vagina: normal appearance of the vagina, normal vaginal discharge, no lesions and nontender Speculum Exam - Cervix: normal appearance of the cervix, no lesions and no masses Bimanual Exam- Vagina & Uterus: normal bimanual exam, uterine size normal, bladder normal to palpation, normal palpation and non-tender Bimanual Exam- Adnexa, other: normal adnexae, no masses, normal and non-tender Pelvic Support: normal Skin General: no rashes or lesions noted Neuro General: patient alert, patient awake, patient oriented x3 and moves all extremities Psych Appearance: grossly normal Mental Status: mental status grossly normal Affect: normal affect Speech and Movement: speech and movement normal Attitude: cooperative Coding Level of Care Code New Pt Off vis,new,prev 40-64yrs Patient Type New Diagnoses Encounter for routine gynecological examination Z01.419 Climacteric N95.1 Irregular menses N92.6 Assessment and Plan Assessment and Plan (1) Encounter for routine gynecological examination: Plan: Breast and pelvic exam complete. PAP due: UTD Mammogram due: orders placed to obtain Advised self breast exams monthly. Contraception: tubal Advised incorporating healthy dietary choices such as increase in lean meats, fruits/vegetables, less processed food/sat fat/trans fats. Increase exercise to 30 minutes per day/5 days a week. This can include both weight bearing exercisesand/or brisk walking. Follow up with PCP for further preventative health screenings. 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 Call office sooner with questions or concerns. (2) Climacteric: Status: Acute Plan: consider OCP (hx endometriosis) Nutritional/exercise management options advised. OTC supplementation that me be of benefit advised. (3) Irregular menses: Status: Acute Plan: If returns to call office. Otherwise track cycles for now. Orders: Orders [facility] MAMM (CAD)W/BOBBY DONALDSON Today Z12.31 - Encounter for screening mammogram for malignant neoplasm of breast 05/02/25 1137 <Electronically signed by Cora zhou NP-C> Date _ Cora Maddox NP-C Cosigner Signature: Date (if applicable) CC: ~ [facility] Work Phone: Reason for referral (narrative) Note Date & Type Note Facility Reason for referral (narrative) No reason for referral information available [facility] Work Phone: Advance Directives No Advanced Directives Records Found Advance Directive Response Recorded Date/ Time Living Will No March 25 0 10:43am Power of Emt P No March 25 10:43am Advance Directive Response Recorded Date/ Time Living Will No March 25 0 11:43am Power of Emt P No March 25 11:43am Chief Complaint and Reason for Visit Chief Complaint SCREENING Chief Complaint 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, 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 10:52am Reason for Visit Admit Date Climacteric May 02, 2025 10:52am Irregular menses May 02, 2025 10:52am Encounter for routine gynecological exam ination May 02, 2025 10:52am Family History No Family History Records Found Relationship Condition Age at Onset Recorded Date/T daquan father Malignant neoplasm Unknown Diabetes mellitus Unknown grandfather Malignant neoplasm Unknown grandmother Malignant neoplasm of uterus Unknown aunt Malignant neoplasm of uterus Unknown Summary Purpose Additional Source Comments Goals (unrecognized section and content) Goals may be documented in a n alternate sectionGoals may be documented in an alternate sectionGoals may be documented in an alternate section Care Teams (unrecognized sec tion and content) Team Status: Active Member Role Status Dates Dr. Kentrell Sharp MD Primary Care Provider Activ e Team Status: Inactive Member Role Status Dates Dr. Kentrell Sharp MD Primary Care Provider Activ e Dr. Camryn Thomason MD Attending Provider, Refer ring Provider Active Team Status: Active Member Role/Relationship Status Dates Dr. Yony Sharp MD Primary care physician Act zander Team Status: Inactive Member Role/Relationship Status Dates Dr. Yony Sharp MD Primary care physician Act zander Start: May 02, 2025 End: May 02, 2025 Dr. Yony Sharp MD Referring Provider Active Start: May 02, 2025 End: May 02, 2025 AJAY Elliott Attending physician Active Start: May 02, 2025 End: May 02, 2025 INFORMATION SOURCE (unrecogn ized section and content) DATE CREATED AUTHOR 06/18/2025 [facility] FOR RECORDS PERTAINING TO PATIENTS WHO ARE OR HAVE BEEN ENROLLED IN A CHEMICAL DEPENDENCY/SUBSTANCEABUSE PROGRAM, SOME INFORMATION MAY BE OMITTED. This clinical summary was aggregated from multiple sources. Caution should be exercised in using it in the provision of clinical care. This summary normalizes information from multiple sources, and as a consequence, information in this document may materially change the coding, format and clinical context of patient data. In addition, data may be omitted in some cases. CLINICAL DECISIONS SHOULD BE BASED ON THE PRIMARY CLINICAL RECORDS. [facility]. provides no warranty or guarantee of the accuracy or completeness of information in this document.
[2025-06-30] MEDS: Ampicillin/Sulbactam 3 GM in 0.9% Normal Saline (100mL MB+) 100 ML IV (14:19)
[2025-06-30] MEDS: 0.9% Normal Saline (1000mL) 1,000 ML 999 ML IV (14:20)
[2025-06-30 14:40] VITALS: BP 129/72; PULSE 68; RESP 18; O2SAT 99
--- NOTE | 2025-06-30 15:15 | EX.ED.DYSGE1 ---
HPI History of Present Illness Chief Complaint: Bite Narrative Narrative: Patient is a 45-year-old female who presented to the emergency department the chief complaint of left hand cat bite. 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 She states that Dr. Cuadra called in Augmentin and notes that she has taken 2 doses of this however when she woke up this morning she had swelling and redness up her arm. States that her friend is a ER physician and advised her to come to the emergency department to be evaluated. Patient otherwise feels fine and has no complaints. PFSH PFS Home Medications Medication Instructions Recorded Last Taken Type multivitamin with minerals 1 ea PO DAILY 02/20/20 Unknown History Allergy/AdvReac Type Severity Reaction Status Date / Time acetaminophen (From Percocet) AdvReac Other Verified 06/30/25 12:40 oxycodone HCl (From Percocet) AdvReac Other Verified 06/30/25 12:40 Family History Father Cancer Prostate Diabetes Grandfather Cancer Prostate Grandmother Uterine cancer Aunt Uterine cancer Surgical History H/O bilateral salpingectomy History of surgery on lower extremity History of laparoscopy Hx of section Social History adopted: No household members: spouse and children number of children: 5 current occupational status: employed current occupation: [employer] sexually active: Yes Smoking Status: Never smoker alcohol intake: current alcohol intake frequency: holidays/special occasions only substance use type: does not use caffeine: Yes Type: coffee during the past year weight has: remained stable what type of physical activity do you participate in: running frequency: 3-4 times per week lane/latter-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: [employer] seatbelt use: always do you feel safe at home: Yes additional social history: Alejandro- Alon[facility] [place] ROS ED ROS Narrative Constitutional: Denies any fevers or chills Neurological: Denies any numbness, weakness, tingling Musculoskeletal: Complains of Bite to the left ring finger Skin: Complains of redness and swelling of her left dorsal aspect of her hand and her arm EXAM Physical Exam Narrative Exam Narrative: General: Patient was lying in bed rest comfortably did not appear to be in acute distress Head: Atraumatic, normocephalic Eyes: PERRL bilaterally, EOMI bilateral, no conjunctival injection noted Neck: Soft, supple, trachea midline Cardiovascular: Regular rate and rhythm Extremities: +5/5 strength noted in the bilateral upper and lower extremities, radial pulses +2/4 in the bilateral extremities Neurological: Patient following commands knew that she was at [facility] year is 2024 Skin: Warm, dry, patient has erythema noted over the dorsal aspect of her left pinky finger extending up the back of her left hand and upper arm just below her elbow on the left side I did outline this with a marker Const Vital Signs: 06/30/25 12:40 06/30/25 12:55 06/30/25 14:40 Temperature 98.5 F 98.7 F Temperature Source Oral Oral Pulse Rate 67 89 68 Respiratory Rate 16 18 18 Blood Pressure 126/79 H 126/76 H 129/72 H Blood Pressure Mean 94 92 91 Pulse Ox 99 98 99 Oxygen Delivery Method Room Air Room Air Room Air MDM MDM MDM Narrative Medical decision making narrative: Patient is a 45-year-old female who presents to the emergency department chief complaint of Right. On the differential diagnose includes but limited to cellulitis, cat bite. I did discuss the patient that since she is taken a days worth Augmentin and has progressively worsening upper arm that we can go 1-2 ways of this. The first way we can do this was to give her a dose of IV antibiotics continue the Augmentin that she is currently on and return with worsening symptoms or any concerns versus admission for IV antibiotics. After discussion and shared decision making the patient ultimately would prefer to avoid admission and get a dose of IV antibiotics and have close follow-up with strict return precautions. She does work at [employer] and it was very reasonable. She was given 3 g Ancef Unasyn here in the emergency department. She is advised to continue the Augmentin that she is currently on. She is advised if the redness is spreading outside of the lines that I margarita that she needs to return immediately. She is agreeable this plan all question concerns answered she was discharged home in stable condition. Discharge Plan Triage Chief Complaint: Bite ED Provider: Bruce Wallace Dx/Rx/DC Orders Clinical Impression: Cat bite, Cellulitis of arm, left Prescriptions: No Action multivitamin with minerals 1 EACH tablet 1 ea PO DAILY Primary Care Provider: CHRIS BROWN Referrals: CHRIS BROWN CRNP [Primary Care Provider, Family Practice] Activity Restrictions/Additional Instructions: Continue antibiotics as we discussed here you were given a dose of IV antibiotics here. Return with worsening symptoms or other concerns. If the redness is continuing to spread outside the lines by tomorrow you need to return for admission. Print Language: Hungarian Disposition Disposition: Home, Self Care
[2025-06-30 16:00] VITALS: BP 136/78; PULSE 64; RESP 18; TEMP 36.6; O2SAT 99
== END 2025-06-30 16:38 | disposition home or self-care (01) ==
PROVIDERS: Emergency Provider Emergency Medicine; PCP Nurse Practitioner Adult Health; Visit Provider Emergency Medicine
DX: L03.114 Cellulitis of left upper limb (principal); W55.01XA Bitten by cat, initial encounter; Y93.89 Activity, other specified; Y92.59 Other trade areas as the place of occurrence of the external cause
CPT/HCPCS: 96365; 99282; J0295

== ENCOUNTER 2025-07-06 09:51 | Outpatient (CLI) | payer OTHER, SELFPAY ==
[2025-07-06 09:52] VITALS: BMI 22.8
--- OUTSIDE RECORDS SUMMARY | 2025-07-06 10:17 | XMS RPT_ITS | CCD ---
Author Organization [facility] Inform ion Partnership [facility] Care Team Providers Care Pin Or Clip Fastener Name Role Phone Lila MARY, Dr. Bhakta Primary Care Physicia n Dr. Yony Sharp MD Referring Provider Cora Ryan Attending Physician [phone] Kala Langford Attending Unavailable Yony Sharp Referring [...] (3 sources) Acetaminophen Drug Allergy 04-03-2020 Other [facility] (4 sources) oxyCODONE; Translations: [oxycodone HCl] Drug Allergy 04-03-2020 Other [facility] (1 source) Acetaminophen Drug Allergy 05-02-2025 [facility] Repository Medications Current Medications Medication Drug Class(es) [...] BILATo n 06-17-2025 SCRN MAMM (CAD)W/BOBBY BILAT [facility] Imaging Services [address] [place] [id number] SCRN MAMM (CAD)W/BOBBY BILAT MR#: [id number] Acct: [id number] Name: RADHA RAO Rep #: [id number] : 1980 F 45 From: Tameka Padilla i, MD PCP: Dr. Yony Sharp MD Status: REG CLI Study: SCRN MAMM (CAD)W/BOBBY BILAT Date of Exam: 11/06 Exam# [id number] Ordering Dr: Cora Maddox RELIEF DOCKING MASTER-C EXAM: SCRN MAMM (CAD)W/BOBBY BILAT DATE: 06/17/2025 [...] be mailed to the patient. Reading Location: [id number] CC: AJAY Maddox; Dr. Yony Sharp MD Research Laboratory Technician: Signed Normal [facility] Rn Complex Care Office Visit Reporton 05-02-2025 Rn Complex Care Office Visit Report [facility] [address], [address] [place] [address] OFFICE VISIT Date of Service: 05/02/25 MR#: [id number] Acct: [id number] Name: RADHA RAO Rep #: [id number] : 1980 Provider: AJAY Umana Age/Sex: 44/F [place] [facility] [place]: Signed Intake Vital Signs 07/19/24 11:06 05/02/25 10:55 05/02/25 11:07 Height 5 ft 11.5 in 5 ft 11.5 in 5 ft 11.5 in Weight: 168 lb 2 oz 166 lb 1 oz BMI 23.1 22.8 BP 122/77 H 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 Normal [facility] Cerv Spine 2 or 3 Viewson Cerv Spine 2 or 3 Views [facility] [address] [place] [address] Cerv Spine 2 or 3 Views MR#: [id number] Acct: [id number] Name: RADHA RAO Rep #: [id number] : 1980 F 44 From: Bryce Castro PCP: Dr. Yony Sharp MD Status: DEP AMB Study: Cerv Spine 2 or 3 Views Date of Exam: 07/19/24 Exam# [id number] Ordering Dr: Kala Langford [id number] INDICATION: pain -- please do flex/ext EXAMINATION/TECHNIQUE [...] CC: GLENIS Thakkar; Dr. Yony Sharp MD Research Laboratory Technician: Signed Normal [facility] Orthopedic Visit Reporton Orthopedic Visit Report [facility] [address] [place] [address] OFFICE VISIT Date of Service: 07/19/24 MR#: [id number] Acct: [id number] Name: RADHA RAO Rep #: [id number] : 1980 Provider: GLENIS Thakkar Age/Sex: 44/F [place] [facility] Status: Signed Intake Vital Signs 04/03/20 08:37 07/19/24 11:06 Height 5 ft 11.5 in 5 ft 11.5 in Weight: 168 lb 2 oz BMI 23.1 Intake Visit Reasons: CERVICAL SPINE Accompanied by: Self Is patient in pain?: No Allergies acetaminophen (From Percocet) Adverse Reaction (Verified 07/19/24 11:10) Other oxycodone HCl (From Percocet) Adverse Reaction (Verified 07/19/24 11:10) Other [facility] Surgical History (Updated 07/19/24 @ 11:14 [...] applicable) CC: Dr. Yony Sharp MD Normal [facility] Cerv Spine 4 or 5 Viewson Cerv Spine 4 or 5 Views [facility] Imaging Services [address] [place] [address] Cerv Spine 4 or 5 Views MR#: [id number] Acct: [id number] Name: RADHA RAO Rep #: [id number] : 1980 F 44 From: Bryce Landry MD PCP: Dr. Yony Sharp MD Status: [facility] Study: Cerv Spine 4 or 5 Views Date of Exam: 07/03/24 Exam# [id number] Ordering Dr: Dwight Croft MD [id number] STUDY: X-RAY - CERVICAL SPINE REASON FOR [...] Dwight Croft MD; Dr. Yony Sharp MD Research Laboratory Technician: Signed Normal [facility] Thoracic Spine 2 Viewson Thoracic Spine 2 Views [facility] Imaging Services [address] [place], [place] [id number] Thoracic Spine 2 Views MR#: [id number] Acct: [id number] Name: RADHA RAO Rep #: [id number] : 1980 F 44 From: Bryce Landry MD PCP: Dr. Yony Sharp MD Status: REG CL Study: Thoracic Spine 2 Views Date of Exam: 07/03/24 Exam# [id number] Ordering Dr: Dwight Croft MD [id number] STUDY: X-RAY - THORACIC SPINE REASON FOR [...] Dwight Croft MD; Dr. Yony Sharp MD Research Laboratory Technician: Signed Normal [facility] Basophil percentageon 2021 Chloride [Moles/Vol] 103 mmol/L 98-107 [facility] Work Phone: Cholesterol [Mass/Vol] 162 mg/dL <200 [facility] Work Phone: Comment on above: <200 mg/dL Desirable 200-240 mg/dL Borderline >240 mg/dL High Risk Glucose [Mass/Vol] 88 mg/dL 74-106 [facility] Work Phone: Potassium [Moles/Vol] 4.4 mmol/L 3.5-5.1 [facility] Work Phone: Sodium [Moles/Vol] 139 mmol/L 136-145 [facility] Work Phone: Triglyceride [Mass/Vol] 153 mg/dL <199 [facility] Work Phone: Comment on above: The drugs N-Acetylcy steine and Metamizole may falsely depress this assay.Serum Triglycerides Reference Interval Normal <150 mg/dL Borderline high 150 - 199 mg/dL High 200 - 499 mg/dL Very High > or = 500 mg/dL Laboratory - Chemistry and C hemistry - challengeon 07-15-2022 CO2 [Moles/Vol] 29.0 mmol/L 21.0-32.0 [facility] Work Phone: Urea nitrogen/Creatinine [Mass ratio] 15.5 mg/mg - [facility] Work Phone: No Panel Informationon 07-15 Estimated GFR (MDRD) Amer 96 mL/min >60 [facility] Work Phone: Comment on above: GFR Calc Estimated GFR (MDRD) Non-Af Amer 79 mL/min >60 [facility] Work Phone: Comment on above: Non- GFR Calc Thyroid Stimulating Hormone (TSH) 1.30 uIU/mL 0.358-3.74 [facility] Work Phone: Vitamin D 25-Hydroxy 42.4 ng/mL [facility] Work Phone: Comment on above: Vitamin D 25(OH) Sta tus Range Deficiency <20 ng/mL (50nmol/L) Insufficiency 20 - 30 ng/mL (50 - 75 nmol/L) Sufficiency 30 - 100 ng/mL (75 - 250 nmol/L) Toxicity >100 ng/mL (>250 nmol/L) Serum or plasma calcium davin urement (mass/volume)on 07-15-2022 Calcium [Mass/Vol] 8.5 mg/dL 8.5-10.1 [facility] Work Phone: Serum or plasma cholesterol in HDL measurement (mass/volume)on 07-15-2022 Cholesterol in HDL [Mass/Vol] 54 mg/dL >40 [facility] Work Phone: Comment on above: The drugs N-Acetylcy steine and Metamizole may falsely depress this assay. Reference Range HDL <40 mg/dL Low HDL Cholesterol HDL >or= 60 mg/dL High HDL Cholesterol Serum or plasma cholesterol in VLDL measurement (mass/volume)on 07-15-2022 Cholesterol in VLDL [Mass/Vol] 31 mg/dL 5-40 [facility] Work Phone: Serum or plasma creatinine m easurement (mass/volume)on 07-15-2022 Creatinine [Mass/Vol] 0.84 mg/dL 0.55-1.02 [facility] Work Phone: Comment on above: The validity of the calculated GFR & GFRAA in patients over 70 years has not been determined. Clinical correlation is essential. Serum or plasma low density lipoprotein (LDL) cholesterol measurement (mass/volume)on 07-15-2022 Cholesterol in LDL [Mass/Vol] 77 mg/dL 0-130 [facility] Work Phone: Serum or plasma urea nitroge n measurement (mass/volume)on 07-15-2022 Urea nitrogen [Mass/Vol] 13 mg/dL 7-18 [facility] Work Phone: Thin prep Papanicolaou smear with manual screeningon 07-15-2022 Thin prep Papanicolaou smear with manual screening 7 5-15 [facility] Work Phone: Vital Signs Date Time Vital Sign Value Performing Clinician Asifi dean 05-02-2025 11:07-0400 Body height 181.[address] Yony Sharp MD Work Phone: [facility] 05-02-2025 10:55-0400 Body mass index (BMI) [Ratio] 22.8 kg/m2 Dr. Yony Sharp MD Work Phone: [facility] 05-02-2025 10:55-0400 Body weight 75.[address] Yony Sharp MD Work Phone: [facility] 05-02-2025 10:55-0400 Diastolic blood pressure 77 mm[Hg] Dr. Yony Sharp MD Work Phone: [facility] 05-02-2025 10:55-0400 Systolic blood pressure 122 mm[Hg] Dr. Yony Sharp MD Work Phone: [facility] Encounters Encounter Date Encounter Type Care Provider Facility Start: 06-17-2025 [facility] Start: 05-02-2025 Encounter for gynecological examination (general) (routine) without abnormal findings Corapierce Maddox [facility] Start: 05-02-2025 End: 05-02-2025 Patient encounter procedure Corapierce Maddox RELIEF DOCKING MASTER-C -[facility] Work Phone: Start: 05-02-2025 End: 05-02-2025 Patient encounter status Cora Mazariegosluna RELIEF DOCKING MASTER-C [facility] Start: 05-02-2025 End: 05-02-[address] Yony Sharp MD Work Phone: -[facility] Start: 07-19-2024 End: 07-19-2024 ambulatory Kala Langford Facility[place] Start: 07-03-2024 End: 07-03-2024 ambulatory Luis Fcooper Guerda Facility:[facility] Start: 01-28-2023 End: 01-28-2023 ambulatory [facility] Work Phone: Start: 01-28-2023 End: 01-28-2023 Patient encounter procedure [facility] Start: 07-15-2022 End: 07-15-2022 ambulatory [facility] Work Phone: Start: 07-15-2022 End: 07-15-2022 Patient encounter procedure [facility] Procedures Date Procedure Procedure Detail Performing Clinician Start: 01-28-2023 Screening mammography Plan of Treatment Date Care Activity Detail Author MG Breast - bilateral Screening [facility] Immunizations Immunization Date Immunization Notes Care Provider Honey chavez 05-29-2014 Influenza virus vaccine W [facility] Payers Date Payer Category Payer Self-pay [id number] 2015 Unknown [id number] Unknown [id number] Unknown [id number] [id number] Unknown [id number] [id number] [id number] Unknown [id number] 2.16.8 [id number] Unknown [id number] 2.16.8 [id number] Unknown [id number] 2.16.8 [id number] Social History Date Type Detail Facility Start: 03-25-2020 End: 03-25-2020 Tobacco smoking status NHIS Unknown if ever smoked [facility] Start: 03-25-2020 Non-smoker [facility] Start: 1980 Sex Assigned At Female W [facility] Start: 05-02-2025 Tobacco smoking stat us LAIS Never smoked tobacco (finding) [facility] Sex Female [facility] Medical Equipment Procedure Code Equipment Code Equipment Origin al Text Equipment Identifier Dates Laparoscopy, diagnostic DRESSING,INTERCEED 3X4 FDA Start: 04-03-2020 Laparoscopy, diagnostic DRESSING,INTERCEED 3X4 FDA Start: 04-03-2020 Laparoscopy, diagnostic DRESSING,INTERCEED 3X4 FDA Start: 04-03-2020 Progress note 05-02-2025 Note Date & Type Note Facility 05-02-2025 Progress note [facility] Evaluation note Note Date & Type Note Facility Evaluation note No assessment information availa ble [facility] Work Phone: Evaluation note Note Date & Type Note Facility Evaluation note Diagnosis Onset Date Resolution Climacteric acute April 10:52am Irregular menses acute Septembe r 2024 10:52am Encounter for routine gynecological examination noneactive May 02, 2025 10:52am [facility] Work Phone: Progress note Note Date & Type Note Facility Progress note Note Date/Time May 02, 2025 11:37am [facility] [address], [address] [place] [address] OFFICE VISIT Date of Service: 05/02/25 MR#: [id number] Acct: [id number] Name: RADHA RAO Rep #: [id number] : 1980 Provider: AJAY Maddox Age/Sex: 44/F [place] [facility] Status: Signed Intake Vital Signs 07/19/24 11:06 05/02/25 10:55 05/02/25 11:07 Height 5 ft 11.5 in 5 ft 11.5 in 5 ft 11.5 in Weight: 168 lb 2 oz 166 lb 1 oz BMI 23.1 22.8 BP 122/77 H 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.] 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 Call office sooner with questions or [...] Cosigner Signature: Date (if applicable) CC: ~ [facility] Work Phone: Reason for referral (narrative) Note Date & Type Note Facility Reason for referral (narrative) No reason for referral information available [facility] Work Phone: Advance Directives No Advanced Directives Records Found Advance Directive Response Recorded Date/ Time Living Will No March 25 0 10:43am Power of Manager Concrete No March 25 10:43am Advance Directive Response Recorded Date/ Time Living Will No March 25 0 11:43am Power of Manager Concrete No March 25 11:43am Chief Complaint and Reason for Visit Chief Complaint SCREENING Chief Complaint 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 [facility] [employer] [facility]. provides no warranty or guarantee of the accuracy or completeness of information in this document.
--- OUTSIDE RECORDS SUMMARY | 2025-07-06 12:29 | XMS RPT_ITS | CCD ---
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 Bhakta Primary Care Physicia n Dr. Yony Sharp MD Referring Provider Cora Ryan Attending Physician [phone] Kala Langford Attending Unavailable Yony Sharp Referring [...] (3 sources) Acetaminophen Drug Allergy 04-03-2020 Other [facility] (4 sources) oxyCODONE; Translations: [oxycodone HCl] Drug Allergy 04-03-2020 Other [facility] (1 source) Acetaminophen Drug Allergy 05-02-2025 [facility] Repository Medications Current Medications Medication Drug Class(es) [...] BILATo n 06-17-2025 SCRN MAMM (CAD)W/BOBBY BILAT [facility] Imaging Services [address] [place] [id number] SCRN MAMM (CAD)W/BOBBY BILAT MR#: [id number] Acct: [id number] Name: RADHA RAO Rep #: [id number] : 1980 F 45 From: Tameka Padilla i, MD PCP: Dr. Yony Sharp MD Status: REG CLI Study: SCRN MAMM (CAD)W/BOBBY BILAT Date of Exam: 11/06 Exam# [id number] Ordering Dr: Cora Maddox CORPORATE TREASURY ANALYST-C EXAM: SCRN MAMM (CAD)W/BOBBY BILAT DATE: 06/17/2025 [...] be mailed to the patient. Reading Location: [id number] CC: AJAY Maddox; Dr. Yony Sharp MD Gill Box Tender: Signed Normal [facility] Senior Talent Acquisition Specialist Office Visit Reporton 05-02-2025 Senior Talent Acquisition Specialist Office Visit Report [facility] [address], [address] [place] [address] OFFICE VISIT Date of Service: 05/02/25 MR#: [id number] Acct: [id number] Name: RADAH RAO Rep #: [id number] : 1980 Provider: AJAY Uamna Age/Sex: 44/F Location[place] [facility] [place] Status: Signed Intake Vital Signs 07/19/24 11:06 05/02/25 10:55 05/02/25 11:07 Height 5 ft 11.5 in 5 ft 11.5 in 5 ft 11.5 in Weight: 168 lb 2 oz 166 lb 1 oz BMI 23.1 22.8 BP 122/77 H 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 Unknown Alejandro- 2005 live - full term Male [facility] Unknown Rom- 2007 live - full term Male [facility] Unknown Mary- 2009 live - full term Female [facility] Unknown Osmel- 2014 live - full term [...] excessive sweat (more content not included)... Normal [facility] Cerv Spine 2 or 3 Viewson Cerv Spine 2 or 3 Views [facility] [address] [place] [address] Cerv Spine 2 or 3 Views MR#: [id number] Acct: [id number] Name: RADHA RAO Rep #: [id number] : 1980 F 44 From: Bryce Castro PCP: Dr. Yony Sharp MD Status: DEP AMB Study: Cerv Spine 2 or 3 Views Date of Exam: 07/19/24 Exam# [id number] Ordering Dr: Kala Langford [id number] INDICATION: pain -- please do flex/ext EXAMINATION/TECHNIQUE [...] CC: GLENIS Thakkar; Dr. Yony Sharp MD Gill Box Tender: Signed Normal [facility] Orthopedic Visit Reporton Orthopedic Visit Report [facility] [address] [place] [address] OFFICE VISIT Date of Service: 07/19/24 MR#: [id number] Acct: [id number] Name: RADHA RAO Rep #: [id number] : 1980 Provider: GLENIS Thakkar Age/Sex: 44/F Location[place] [facility] [place] Status: Signed Intake Vital Signs 04/03/20 08:37 07/19/24 11:06 Height 5 ft 11.5 in 5 ft 11.5 in Weight: 168 lb 2 oz BMI 23.1 Intake Visit Reasons: CERVICAL SPINE Accompanied by: Self Is patient in pain?: No Allergies acetaminophen (From Percocet) Adverse Reaction (Verified 07/19/24 11:10) Other oxycodone HCl (From Percocet) Adverse Reaction (Verified 07/19/24 11:10) Other [facility] Surgical History (Updated 07/19/24 @ 11:14 by [...] applicable) CC: Dr. Yony Sharp MD Normal [facility] Cerv Spine 4 or 5 Viewson Cerv Spine 4 or 5 Views [facility] Imaging Services [address] [place] [address] Cerv Spine 4 or 5 Views MR#: [id number] Acct: [id number] Name: RADHA RAO Rep #: [id number] : 1980 F 44 From: Bryce Landry MD PCP: Dr. Yony Sharp MD Status: [facility] Study: Cerv Spine 4 or 5 Views Date of Exam: 07/03/24 Exam# [id number] Ordering Dr: Dwight Croft MD [id number] STUDY: X-RAY - CERVICAL SPINE REASON FOR [...] Dwight Croft MD; Dr. Yony Sharp MD Gill Box Tender: Signed Normal [facility] Thoracic Spine 2 Viewson Thoracic Spine 2 Views [facility] Imaging Services [address] [place], [place] [id number] Thoracic Spine 2 Views MR#: [id number] Acct: [id number] Name: RADHA RAO Rep #: [id number] : 1980 F 44 From: Bryce Landry MD PCP: Dr. Yony Sharp MD Status: REG CL Study: Thoracic Spine 2 Views Date of Exam: 07/03/24 Exam# [id number] Ordering Dr: Dwight Croft MD [id number] STUDY: X-RAY - THORACIC SPINE REASON FOR [...] Dwight Croft MD; Dr. Yony Sharp MD Gill Box Tender: Signed Normal [facility] Basophil percentageon 2021 Chloride [Moles/Vol] 103 mmol/L 98-107 [facility] Work Phone: Cholesterol [Mass/Vol] 162 mg/dL <200 [facility] Work Phone: Comment on above: <200 mg/dL Desirable 200-240 mg/dL Borderline >240 mg/dL High Risk Glucose [Mass/Vol] 88 mg/dL 74-106 [facility] Work Phone: Potassium [Moles/Vol] 4.4 mmol/L 3.5-5.1 [facility] Work Phone: Sodium [Moles/Vol] 139 mmol/L 136-145 [facility] Work Phone: Triglyceride [Mass/Vol] 153 mg/dL <199 [facility] Work Phone: Comment on above: The drugs N-Acetylcy steine and Metamizole may falsely depress this assay.Serum Triglycerides Reference Interval Normal <150 mg/dL Borderline high 150 - 199 mg/dL High 200 - 499 mg/dL Very High > or = 500 mg/dL Laboratory - Chemistry and C hemistry - challengeon 07-15-2022 CO2 [Moles/Vol] 29.0 mmol/L 21.0-32.0 [facility] Work Phone: Urea nitrogen/Creatinine [Mass ratio] 15.5 mg/mg - [facility] Work Phone: No Panel Informationon 07-15 Estimated GFR (MDRD) Amer 96 mL/min >60 [facility] Work Phone: Comment on above: GFR Calc Estimated GFR (MDRD) Non-Af Amer 79 mL/min >60 [facility] Work Phone: Comment on above: Non- GFR Calc Thyroid Stimulating Hormone (TSH) 1.30 uIU/mL 0.358-3.74 [facility] Work Phone: Vitamin D 25-Hydroxy 42.4 ng/mL [facility] Work Phone: Comment on above: Vitamin D 25(OH) Sta tus Range Deficiency <20 ng/mL (50nmol/L) Insufficiency 20 - 30 ng/mL (50 - 75 nmol/L) Sufficiency 30 - 100 ng/mL (75 - 250 nmol/L) Toxicity >100 ng/mL (>250 nmol/L) Serum or plasma calcium davin urement (mass/volume)on 07-15-2022 Calcium [Mass/Vol] 8.5 mg/dL 8.5-10.1 [facility] Work Phone: Serum or plasma cholesterol in HDL measurement (mass/volume)on 07-15-2022 Cholesterol in HDL [Mass/Vol] 54 mg/dL >40 [facility] Work Phone: Comment on above: The drugs N-Acetylcy steine and Metamizole may falsely depress this assay. Reference Range HDL <40 mg/dL Low HDL Cholesterol HDL >or= 60 mg/dL High HDL Cholesterol Serum or plasma cholesterol in VLDL measurement (mass/volume)on 07-15-2022 Cholesterol in VLDL [Mass/Vol] 31 mg/dL 5-40 [facility] Work Phone: Serum or plasma creatinine m easurement (mass/volume)on 07-15-2022 Creatinine [Mass/Vol] 0.84 mg/dL 0.55-1.02 [facility] Work Phone: Comment on above: The validity of the calculated GFR & GFRAA in patients over 70 years has not been determined. Clinical correlation is essential. Serum or plasma low density lipoprotein (LDL) cholesterol measurement (mass/volume)on 07-15-2022 Cholesterol in LDL [Mass/Vol] 77 mg/dL 0-130 [facility] Work Phone: Serum or plasma urea nitroge n measurement (mass/volume)on 07-15-2022 Urea nitrogen [Mass/Vol] 13 mg/dL 7-18 [facility] Work Phone: Thin prep Papanicolaou smear with manual screeningon 07-15-2022 Thin prep Papanicolaou smear with manual screening 7 5-15 [facility] Work Phone: Vital Signs Date Time Vital Sign Value Performing Clinician Asifi dean 05-02-2025 11:07-0400 Body height 181.[address] Yony Sharp MD Work Phone: [facility] 05-02-2025 10:55-0400 Body mass index (BMI) [Ratio] 22.8 kg/m2 Dr. Yony Sharp MD Work Phone: [facility] 05-02-2025 10:55-0400 Body weight 75.[address] Yony Sharp MD Work Phone: [facility] 05-02-2025 10:55-0400 Diastolic blood pressure 77 mm[Hg] Dr. Yony Sharp MD Work Phone: [facility] 05-02-2025 10:55-0400 Systolic blood pressure 122 mm[Hg] Dr. Yony Sharp MD Work Phone: [facility] Encounters Encounter Date Encounter Type Care Provider Facility Start: 06[facility]17-[facility] Start: 05-02-2025 Encounter for gynecological examination (general) (routine) without abnormal findings Corapierce Maddox [facility] Start: 05-02-2025 End: 05-02-2025 Patient encounter procedure Corapierce Maddox CORPORATE TREASURY ANALYST-C -[facility] Work Phone: Start: 05-02-2025 End: 05-02-2025 Patient encounter status Cora Mazariegosluna CORPORATE TREASURY ANALYST-C [facility] Start: 05-02-2025 End: 05-02-[address] Yony Sharp MD Work Phone: -[facility] Start: 07-19-2024 End: 07-19-2024 ambulatory Kala Langford Facility:[facility] Start: 07-03-2024 End: 07-03-2024 ambulatory Luis Fcooper Guerda Facility:[facility] Start: 01-28-2023 End: 01-28-2023 ambulatory [facility] Work Phone: Start: 01-28-2023 End: 01-28-2023 Patient encounter procedure [facility] Start: 07-15-2022 End: 07-15-2022 ambulatory [facility] Work Phone: Start: 07-15-2022 End: 07-15-2022 Patient encounter procedure [facility] Procedures Date Procedure Procedure Detail Performing Clinician Start: 01-28-2023 Screening mammography Plan of Treatment Date Care Activity Detail Author MG Breast - bilateral Screening [facility] Immunizations Immunization Date Immunization Notes Care Provider Honey chavez 05-29-2014 Influenza virus vaccine [facility] Payers Date Payer Category Payer Self-pay [id number] 2015 Unknown [id number] Unknown [id number] Unknown [id number] [id number] [id number] Unknown [id number] [id number] [id number] Unknown [id number] 2.16.8 [id number] Unknown [id number] 2.16.8 [id number] Unknown [id number] 2.16.8 [id number] Social History Date Type Detail Facility Start: 03-25-2020 End: 03-25-2020 Tobacco smoking status NHIS Unknown if ever smoked [facility] Start: 03-25-2020 Non-smoker [facility] Start: 1980 Sex Assigned At Female W [facility] Start: 05-02-2025 Tobacco smoking stat us CTIS Never smoked tobacco (finding) [facility] Sex Female [facility] Medical Equipment Procedure Code Equipment Code Equipment Origin al Text Equipment Identifier Dates Laparoscopy, diagnostic DRESSING,INTERCEED 3X4 FDA Start: 04-03-2020 Laparoscopy, diagnostic DRESSING,INTERCEED 3X4 FDA Start: 04-03-2020 Laparoscopy, diagnostic DRESSING,INTERCEED 3X4 FDA Start: 04-03-2020 Progress note 05-02-2025 Note Date & Type Note Facility 05-02-2025 Progress note [facility] Evaluation note Note Date & Type Note Facility Evaluation note No assessment information availa ble [facility] Work Phone: Evaluation note Note Date & Type Note Facility Evaluation note Diagnosis Onset Date Resolution Climacteric acute April 10:52am Irregular menses acute Septembe r 2024 10:52am Encounter for routine gynecological examination noneactive May 02, 2025 10:52am [facility] Work Phone: Progress note Note Date & Type Note Facility Progress note Note Date/Time May 02, 2025 11:37am 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 Call office sooner with questions or [...] Cosigner Signature: Date (if applicable) CC: ~ [facility] Work Phone: Reason for referral (narrative) Note Date & Type Note Facility Reason for referral (narrative) No reason for referral information available [facility] Work Phone: Advance Directives No Advanced Directives Records Found Advance Directive Response Recorded Date/ Time Living Will No March 25 0 10:43am Power of Sand Miller No March 25 10:43am Advance Directive Response Recorded Date/ Time Living Will No March 25 0 11:43am Power of Sand Miller No March 25 11:43am Chief Complaint and Reason for Visit Chief Complaint SCREENING Chief Complaint Admit Date 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 FOR RECORDS PERTAINING TO PATIENTS WHO [...] BE BASED ON THE PRIMARY CLINICAL RECORDS. [facility] [employer] [facility]. provides no warranty or guarantee of the accuracy or completeness of information in this document.
== END 2025-07-06 10:30 | disposition home or self-care (01) ==
LOC: ED 12:27
PROVIDERS: PCP Nurse Practitioner Adult Health; Visit Provider Student in an Organized Health Care Education/Training Program
DX: Z20.3 Contact with and (suspected) exposure to rabies (principal); Z23 Encounter for immunization
CPT/HCPCS: 90675; 96372

== ENCOUNTER 2025-07-10 08:02 | Outpatient (CLI) | payer OTHER, SELFPAY ==
[2025-07-10 08:02] VITALS: BP 126/71; PULSE 49; RESP 17; TEMP 35.7; O2SAT 100
[2025-07-10 08:04] VITALS: BP 126/71; PULSE 56; RESP 16; O2SAT 100
[2025-07-10 09:01] VITALS: BP 112/78; PULSE 69; RESP 17; TEMP 35.7; O2SAT 100
== END 2025-07-10 09:07 | disposition home or self-care (01) ==
PROVIDERS: PCP Nurse Practitioner Adult Health; Visit Provider Student in an Organized Health Care Education/Training Program
DX: Z29.14 Encounter for prophylactic rabies immune globulin (principal); Z23 Encounter for immunization; Z20.3 Contact with and (suspected) exposure to rabies
CPT/HCPCS: 90675; 96372

== ENCOUNTER → 2025-07-17 | Outpatient (CLI) | payer OTHER, SELFPAY ==
[2025-07-17 09:46] VITALS: BP 114/75; PULSE 51; RESP 16; O2SAT 100; BMI 22.6
[2025-07-17 10:24] VITALS: BP 114/64; PULSE 69; RESP 16; TEMP 36.6; O2SAT 100
--- OUTSIDE RECORDS SUMMARY | 2025-07-17 10:56 | XMS RPT_ITS | CCD ---
Author Organization [facility] Inform ion Partnership 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 Bhakta Primary Care Physicia n Dr. Yony Sharp MD Referring Provider Cora Ryan Attending Physician [phone] Kala Langford Attending Unavailable Yony Sharp Referring [...] (3 sources) Acetaminophen Drug Allergy 04-03-2020 Other [facility] (4 sources) oxyCODONE; Translations: [oxycodone HCl] Drug Allergy 04-03-2020 Other [facility] (1 source) Acetaminophen Drug Allergy 05-02-2025 [facility] Repository Medications Current Medications Medication Drug Class(es) [...] BILATo n 06-17-2025 SCRN MAMM (CAD)W/BOBBY BILAT [facility] Imaging Services [address] [place] [id number] SCRN MAMM (CAD)W/BOBBY BILAT MR#: [id number] Acct: [id number] Name: RADHA RAO Rep #: [id number] : 1980 F 45 From: Tameka Padilla i, MD PCP: Dr. Yony Sharp MD Status: REG CLI Study: SCRN MAMM (CAD)W/BOBBY BILAT Date of Exam: 11/06 Exam# [id number] Ordering Dr: Cora Maddox AUTOMOTIVE MACHINIST APPRENTICE-C EXAM: SCRN MAMM (CAD)W/BOBBY BILAT DATE: 06/17/2025 [...] be mailed to the patient. Reading Location: [id number] CC: AJAY Maddox; Dr. Yony Sharp MD [employer] Consultant: Signed Normal [facility] Supervisor Pigment Making Office Visit Reporton 05-02-2025 Supervisor Pigment Making Office Visit Report [facility]'s [address], [address] [place] [address] OFFICE VISIT Date of Service: 05/02/25 MR#: [id number] Acct: [id number] Name: RADHA RAO Rep #: [id number] : 1980 Provider: AJAY Umana Age/Sex: 44/F [place] [facility] [place]: Signed Intake Vital Signs 07/19/24 11:06 05/02/25 10:55 05/02/25 11:07 Height 5 ft 11.5 in 5 ft 11.5 in 5 ft 11.5 in Weight: 168 lb 2 oz 166 lb 1 oz BMI 23.1 22.8 BP 122/77 H 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 Date Name GA/Weeks Outcome Route Bth Weight Gen Labor Lgth Anesthesia Del Locatn Provider FOB Unknown Lia- 2004 live - full term Female [facility] Unknown Alejandro- 2005 live - full term Male [facility] Unknown Rom- 2007 live - full term Male [facility] Unknown Mary- 2009 live - full term Female [facility] Unknown Osmel- 2014 live - full term [...] excessive sweat (more content not included)... Normal [facility] Cerv Spine 2 or 3 Viewson Cerv Spine 2 or 3 Views [facility] [address] [place] [address] Cerv Spine 2 or 3 Views MR#: [id number] Acct: [id number] Name: RADHA RAO Rep #: [id number] : 1980 F 44 From: Bryce Castro PCP: Dr. Yony Sharp MD Status: DEP AMB Study: Cerv Spine 2 or 3 Views Date of Exam: 07/19/24 Exam# [id number] Ordering Dr: Kala Langford [id number] INDICATION: pain -- please do flex/ext EXAMINATION/TECHNIQUE [...] CC: GLENIS Thakkar; Dr. Yony Sharp MD [employer] Consultant: Signed Normal [facility] Orthopedic Visit Reporton Orthopedic Visit Report [facility] [address] [place] [address] OFFICE VISIT Date of Service: 07/19/24 MR#: [id number] Acct: [id number] Name: RADHA RAO Rep #: [id number] : 1980 Provider: GLENIS Thakkar Age/Sex: 44/F [place] [facility] [place] Status: Signed Intake Vital Signs 04/03/20 08:37 07/19/24 11:06 Height 5 ft 11.5 in 5 ft 11.5 in Weight: 168 lb 2 oz BMI 23.1 Intake Visit Reasons: CERVICAL SPINE Accompanied by: Self Is patient in pain?: No Allergies acetaminophen (From Percocet) Adverse Reaction (Verified 07/19/24 11:10) Other oxycodone HCl (From Percocet) Adverse Reaction (Verified 07/19/24 11:10) Other [facility] Surgical History (Updated 07/19/24 @ 11:14 by [...] applicable) CC: Dr. Yony Sharp MD Normal [facility] Cerv Spine 4 or 5 Viewson Cerv Spine 4 or 5 Views [facility] Imaging Services [address] [place] [address] Cerv Spine 4 or 5 Views MR#: [id number] Acct: [id number] Name: RADHA RAO Rep #: [id number] : 1980 F 44 From: Bryce Landry MD PCP: Dr. Yony Sharp MD Status: [facility] Study: Cerv Spine 4 or 5 Views Date of Exam: 07/03/24 Exam# [id number] Ordering Dr: Dwight Croft MD [id number] STUDY: X-RAY - CERVICAL SPINE REASON FOR [...] Dwight Croft MD; Dr. Yony Sharp MD Office 365 Consultant: Signed Normal [facility] Thoracic Spine 2 Viewson Thoracic Spine 2 Views [facility] Imaging Services [address] [place], [place] [id number] Thoracic Spine 2 Views MR#: [id number] Acct: [id number] Name: RADHA RAO Rep #: [id number] : 1980 F 44 From: Bryce Landry MD PCP: Dr. Yony Sharp MD Status: REG CL Study: Thoracic Spine 2 Views Date of Exam: 07/03/24 Exam# [id number] Ordering Dr: Dwight Croft MD [id number] STUDY: X-RAY - THORACIC SPINE REASON FOR [...] Dwight Croft MD; Dr. Yony Sharp MD [employer] Consultant: Signed Normal [facility] Basophil percentageon 2021 Chloride [Moles/Vol] 103 mmol/L 98-107 [facility] Work Phone: Cholesterol [Mass/Vol] 162 mg/dL <200 [facility] Work Phone: Comment on above: <200 mg/dL Desirable 200-240 mg/dL Borderline >240 mg/dL High Risk Glucose [Mass/Vol] 88 mg/dL 74-106 [facility] Work Phone: Potassium [Moles/Vol] 4.4 mmol/L 3.5-5.1 [facility] Work Phone: Sodium [Moles/Vol] 139 mmol/L 136-145 [facility] Work Phone: Triglyceride [Mass/Vol] 153 mg/dL <199 [facility] Work Phone: Comment on above: The drugs N-Acetylcy steine and Metamizole may falsely depress this assay.Serum Triglycerides Reference Interval Normal <150 mg/dL Borderline high 150 - 199 mg/dL High 200 - 499 mg/dL Very High > or = 500 mg/dL Laboratory - Chemistry and C hemistry - challengeon 07-15-2022 CO2 [Moles/Vol] 29.0 mmol/L 21.0-32.0 [facility] Work Phone: Urea nitrogen/Creatinine [Mass ratio] 15.5 mg/mg - [facility] Work Phone: No Panel Informationon 07-15 Estimated GFR (MDRD) Amer 96 mL/min >60 [facility] Work Phone: Comment on above: GFR Calc Estimated GFR (MDRD) Non-Af Amer 79 mL/min >60 [facility] Work Phone: Comment on above: Non- GFR Calc Thyroid Stimulating Hormone (TSH) 1.30 uIU/mL 0.358-3.74 [facility] Work Phone: Vitamin D 25-Hydroxy 42.4 ng/mL [facility] Work Phone: Comment on above: Vitamin D 25(OH) Sta tus Range Deficiency <20 ng/mL (50nmol/L) Insufficiency 20 - 30 ng/mL (50 - 75 nmol/L) Sufficiency 30 - 100 ng/mL (75 - 250 nmol/L) Toxicity >100 ng/mL (>250 nmol/L) Serum or plasma calcium davin urement (mass/volume)on 07-15-2022 Calcium [Mass/Vol] 8.5 mg/dL 8.5-10.1 [facility] Work Phone: Serum or plasma cholesterol in HDL measurement (mass/volume)on 07-15-2022 Cholesterol in HDL [Mass/Vol] 54 mg/dL >40 [facility] Work Phone: Comment on above: The drugs N-Acetylcy steine and Metamizole may falsely depress this assay. Reference Range HDL <40 mg/dL Low HDL Cholesterol HDL >or= 60 mg/dL High HDL Cholesterol Serum or plasma cholesterol in VLDL measurement (mass/volume)on 07-15-2022 Cholesterol in VLDL [Mass/Vol] 31 mg/dL 5-40 [facility] Work Phone: Serum or plasma creatinine m easurement (mass/volume)on 07-15-2022 Creatinine [Mass/Vol] 0.84 mg/dL 0.55-1.02 [facility] Work Phone: Comment on above: The validity of the calculated GFR & GFRAA in patients over 70 years has not been determined. Clinical correlation is essential. Serum or plasma low density lipoprotein (LDL) cholesterol measurement (mass/volume)on 07-15-2022 Cholesterol in LDL [Mass/Vol] 77 mg/dL 0-130 [facility] Work Phone: Serum or plasma urea nitroge n measurement (mass/volume)on 07-15-2022 Urea nitrogen [Mass/Vol] 13 mg/dL 7-18 [facility] Work Phone: Thin prep Papanicolaou smear with manual screeningon 07-15-2022 Thin prep Papanicolaou smear with manual screening 7 5-15 [facility] Work Phone: Vital Signs Date Time Vital Sign Value Performing Clinician Asifi dean 05-02-2025 11:07-0400 Body height 181.[address] Yony Sharp MD Work Phone: [facility] 05-02-2025 10:55-0400 Body mass index (BMI) [Ratio] 22.8 kg/m2 Dr. Yony Sharp MD Work Phone: [facility] 05-02-2025 10:55-0400 Body weight 75.[address] Yony Sharp MD Work Phone: [facility] 05-02-2025 10:55-0400 Diastolic blood pressure 77 mm[Hg] Dr. Yony Sharp MD Work Phone: [facility] 05-02-2025 10:55-0400 Systolic blood pressure 122 mm[Hg] Dr. Yoyn Sharp MD Work Phone: [facility] Encounters Encounter Date Encounter Type Care Provider Facility Start: 06-17-[facility] Start: 05-02-2025 Encounter for gynecological examination (general) (routine) without abnormal findings Corapierce Maddox [facility] Start: 05-02-2025 End: 05-02-2025 Patient encounter procedure Corapierce Maddox AUTOMOTIVE MACHINIST APPRENTICE-C -[facility] Work Phone: Start: 05-02-2025 End: 05-02-2025 Patient encounter status Cora Mazariegosluna AUTOMOTIVE MACHINIST APPRENTICE-C [facility] Start: 05-02-2025 End: 05-02-[address] Yony Sharp MD Work Phone: -[facility] Start: 07-19-2024 End: 07-19-2024 ambulatory Kala Langford Facility:[facility] Start: 07-03-2024 End: 07-03-2024 ambulatory Luis Fcooper Guerda Facility:[facility] Start: 01-28-2023 End: 01-28-2023 ambulatory [facility] Work Phone: Start: 01-28-2023 End: 01-28-2023 Patient encounter procedure [facility] Start: 07-15-2022 End: 07-15-2022 ambulatory [facility] Work Phone: Start: 07-15-2022 End: 07-15-2022 Patient encounter procedure [facility] [place] Procedures Date Procedure Procedure Detail Performing Clinician Start: 01-28-2023 Screening mammography Plan of Treatment Date Care Activity Detail Author MG Breast - bilateral Screening [facility] Immunizations Immunization Date Immunization Notes Care Provider Honey chavez 05-29-2014 Influenza virus vaccine [facility] Payers Date Payer Category Payer Self-pay [id number] 2015 Unknown [id number] Unknown [id number] Unknown [id number] [id number] [id number] Unknown [id number] [id number] [id number] Unknown [id number] 2.16.8 [id number] Unknown [id number] 2.16.8 [id number] Unknown [id number] 2.16.8 [id number] Social History Date Type Detail Facility Start: 03-25-2020 End: 03-25-2020 Tobacco smoking status NHIS Unknown if ever smoked [facility] Start: 03-25-2020 Non-smoker [facility] Start: 1980 Sex Assigned At Female [facility] Start: 05-02-2025 Tobacco smoking stat us MOIS Never smoked tobacco (finding) [facility] Sex Female [facility] Medical Equipment Procedure Code Equipment Code Equipment Origin al Text Equipment Identifier Dates Laparoscopy, diagnostic DRESSING,INTERCEED 3X4 FDA Start: 04-03-2020 Laparoscopy, diagnostic DRESSING,INTERCEED 3X4 FDA Start: 04-03-2020 Laparoscopy, diagnostic DRESSING,INTERCEED 3X4 FDA Start: 04-03-2020 Progress note 05-02-2025 Note Date & Type Note Facility 05-02-2025 Progress note [facility] Evaluation note Note Date & Type Note Facility Evaluation note No assessment information availa ble [facility] Work Phone: Evaluation note Note Date & Type Note Facility Evaluation note Diagnosis Onset Date Resolution Climacteric acute April 10:52am Irregular menses acute Septembe r 2024 10:52am Encounter for routine gynecological examination noneactive May 02, 2025 10:52am [facility] Work Phone: Progress note Note Date & Type Note Facility Progress note Note Date/Time May 02, 2025 11:37am 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 Call office sooner with questions or [...] Cosigner Signature: Date (if applicable) CC: ~ [facility] Work Phone: Reason for referral (narrative) Note Date & Type Note Facility Reason for referral (narrative) No reason for referral information available [facility] Work Phone: Advance Directives No Advanced Directives Records Found Advance Directive Response Recorded Date/ Time Living Will No March 25 0 10:43am Power of Motor And Controls Tester No March 25 10:43am Advance Directive Response Recorded Date/ Time Living Will No March 25 0 11:43am Power of Motor And Controls Tester No March 25 11:43am Chief Complaint and Reason for Visit Chief Complaint SCREENING Chief Complaint Admit Date 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 [facility] [employer] [facility]. provides no warranty or guarantee of the accuracy or completeness of information in this document.
== END | disposition home or self-care (01) ==
PROVIDERS: PCP Nurse Practitioner Adult Health
DX: Z23 Encounter for immunization (principal)
CPT/HCPCS: 90675